=== PATIENT | male | born 1935 | race Two or more races ===

== ENCOUNTER 2019-08-10 12:26 | Inpatient (IN) | payer MEDICARE ==
[~2019-08-10] VITALS: Ht 180.3 cm; Wt 83.9 kg
--- NOTE | 2019-08-10 12:53 | NUR ---
ED Nurse Note: Pt walked into ED w/ generalized fatigue for 3 months and weight loss in past 3 months. Pt also states "kidney labs were off" at last visit at doctor and wants to be seen. Pt is alert adn orientedx4, ambulatory with walker. Set up on monitor.
[2019-08-10 13:35] VITALS: BP 108/56
--- NOTE | 2019-08-10 13:39 | NUR ---
ED Nurse Note: IV access established on R AC 20 ga, blood and urine specimen collected sent down
[2019-08-10 13:40] LABS: APPEARANCE,URINE CLEAR; BILIRUBIN, URINE NEGATIVE (NEGATIVE); COLOR,URINE PALE YELLOW; GLUCOSE, URINE (UA) NEGATIVE (NEGATIVE); KETONES,URINE NEGATIVE (NEGATIVE); LEUKOCYTE ESTERASE ,URINE 1+ (NEGATIVE); NITRITE,URINE NEGATIVE (NEGATIVE); PH,URINE 8 (4.5-8.0); PROTEIN,URINE 1+ (NEGATIVE); UROBILINOGEN,URINE NORMAL MG/DL (0.0-1.0)
[2019-08-10 14:11] LABS: ANION GAP 8 mmol/L (5-15); BLOOD UREA NITROGEN 45 mg/dL (7-18); CALCIUM 8.9 MG/DL (8.5-10.1); CARBON DIOXIDE 27 MMOL/L (21-32); CHLORIDE 100 MMOL/L (98-107); CREATININE 2.6 MG/DL (0.55-1.30); POTASSIUM 5.4 MMOL/L (3.5-5.1); SODIUM 135 MMOL/L (136-145)
[2019-08-10 14:12] LABS: HEMATOCRIT 39.2 % (42.0-52.0); HEMOGLOBIN 12.7 G/DL (14.2-18.0); LYMPHOCYTES % (AUTO) 27.2 % (20.0-45.0); MEAN CORPUSCULAR VOLUME 92 FL (80-99); MONOCYTES % (AUTO) 10.4 % (1.0-10.0); NEUTROPHILS % (AUTO) 55.4 % (45.0-75.0); PLATELET COUNT 252 K/UL (150-450); RED BLOOD COUNT 4.27 M/UL (4.70-6.10); RED CELL DISTRIBUTION WIDTH 13.4 % (11.6-14.8)
[2019-08-10 14:15] LABS: ALANINE AMINOTRANSFERASE 14 U/L (12-78); ALBUMIN 4.1 G/DL (3.4-5.0); ALKALINE PHOSPHATASE 44 U/L (46-116); ASPARTATE AMINO TRANSFERASE 17 U/L (15-37); BILIRUBIN,TOTAL 0.4 MG/DL (0.2-1.0)
--- NOTE | 2019-08-10 14:35 | Emergency Room Report ---
History of Present Illness General Chief Complaint: Generalized Weakness Source: Patient Present Illness HPI 84-year-old male presents evaluation. States that he had lab work done by his PMD and states that his kidney function was off. States he feels well. Was told by his PMD to come to the hospital. States he feels well. Denies any chest pain or shortness of breath. Denies any fevers or chills. No other aggravating relieving factors. Denies any other associated symptoms Allergies: Coded Allergies: No Known Allergies (Unverified , 08/10/19) COVID-19 Screening Contact w/high risk pt: No Recent Travel to affected area: No Experienced COVID-19 symptoms?: No COVID-19 Testing performed ACCOUNTING SUPPORT SPECIALIST: No Patient History Past Medical History: DM Past Surgical History: none Pertinent Family History: none Social History: Denies: smoking, alcohol use, drug use Immunizations: UTD Reviewed Nursing Documentation: PMH: Agreed; PSxH: Agreed Nursing Documentation-PMH Past Medical History: No History, Except For Hx Diabetes: Yes - borderline Review of Systems All Other Systems: negative except mentioned in HPI Physical Exam Vital Signs Date Time Temp Pulse Resp B/P (MAP) Pulse Ox O2 Delivery O2 Flow Rate FiO2 08/10/19 12:39 98.2 79 18 108/56 (73) 95 Room Air Sp02 EP Interpretation: reviewed, normal General Appearance: no apparent distress, alert, GCS 15, non-toxic Head: normocephalic, atraumatic Eyes: bilateral eye normal inspection, bilateral eye PERRL ENT: hearing grossly normal, normal pharynx, no angioedema, normal voice Neck: full range of motion, supple/symm/no masses Respiratory: chest non-tender, lungs clear, normal breath sounds, speaking full sentences Cardiovascular #1: regular rate, rhythm, no edema Cardiovascular #2: 2+ carotid (R), 2+ carotid (L), 2+ radial (R), 2+ radial (L) , 2+ dorsalis pedis (R), 2+ dorsalis pedis (L) Gastrointestinal: normal bowel sounds, non tender, soft, non-distended, no guarding, no rebound Rectal: deferred Genitourinary: normal inspection, no CVA tenderness Musculoskeletal: back normal, normal range of motion, gait/station normal, non- tender Neurologic: alert, motor strength/tone normal, oriented x3, sensory intact, responsive, speech normal Psychiatric: judgement/insight normal, memory normal, mood/affect normal, no suicidal/homicidal ideation Reflexes: 3+ bicep (R), 3+ bicep (L), 3+ tricep (R), 3+ tricep (L), 3+ knee (R) , 3+ knee (L) Skin: no rash Lymphatic: no adenopathy Medical Decision Making Diagnostic Impression: Primary Impression: Episode of generalized weakness Additional Impressions: Hyperkalemia Renal insufficiency ER Course Hospital Course 84 yo male presents with generalized weakness, abnormal labs Differential diagnoses include: OR/unstable angina, V. tach, bradycardia, hyperkalemia, fluid overload Clinical course Patient placed on stretcher. on environmental monitoring technician. After initial history and physical I ordered labs, EKG labs reviewed- potassium 5.4. BUN/Cr elevated. Hemoglobin/hematocrit normal. EKG - Normal sinus rhythm no acute ischemic changes interpreted by me Given Kayexalate. Discussed with his PMD Dr. Ford and he suggested admission Case discussed with Dr. Morales and he agreed to accept the patient to his service for further care and support I. I feel this is a highly complex case requiring extensive working including EKG/Rhythm strip, Xray/CT/US, Blood/urine lab work, repeat exams while in ED, and administration of strong opiates/narcotics for pain control, admission to hospital or close patient follow up. Diagnosis - episode of generalized weakness, hyperkalemia, renal insufficiency admitted to telementry in serious condition Labs Test 08/10/19 13:30 White Blood Count 7.0 K/UL (4.8-10.8) Red Blood Count 4.27 M/UL (4.70-6.10) Hemoglobin 12.7 G/DL (14.2-18.0) Hematocrit 39.2 % (42.0-52.0) Mean Corpuscular Volume 92 FL (80-99) Mean Corpuscular Hemoglobin 29.6 PG (27.0-31.0) Mean Corpuscular Hemoglobin Concent 32.3 G/DL (32.0-36.0) Red Cell Distribution Width 13.4 % (11.6-14.8) Platelet Count 252 K/UL (150-450) Mean Platelet Volume 6.8 FL (6.5-10.1) Neutrophils (%) (Auto) 55.4 % (45.0-75.0) Lymphocytes (%) (Auto) 27.2 % (20.0-45.0) Monocytes (%) (Auto) 10.4 % (1.0-10.0) Eosinophils (%) (Auto) 6.0 % (0.0-3.0) Basophils (%) (Auto) 1.0 % (0.0-2.0) Urine Color Pale yellow Urine Appearance Clear Urine pH 8 (4.5-8.0) Urine Specific [place] 1.010 (1.005-1.035) Urine Protein 1+ (NEGATIVE) Urine Glucose (UA) Negative (NEGATIVE) Urine Ketones Negative (NEGATIVE) Urine Blood Negative (NEGATIVE) Urine Nitrite Negative (NEGATIVE) Urine Bilirubin Negative (NEGATIVE) Urine Urobilinogen Normal MG/DL (0.0-1.0) Urine Leukocyte Esterase 1+ (NEGATIVE) Urine RBC 0 /HPF (0 - 0) Urine WBC 2-4 /HPF (0 - 0) Urine Squamous Epithelial Cells Occasional /LPF Urine Bacteria Occasional /HPF (NONE) Sodium Level 135 MMOL/L (136-145) Potassium Level 5.4 MMOL/L (3.5-5.1) Chloride Level 100 MMOL/L (98-107) Carbon Dioxide Level 27 MMOL/L (21-32) Anion Gap 8 mmol/L (5-15) Blood Urea Nitrogen 45 mg/dL (7-18) Creatinine 2.6 MG/DL (0.55-1.30) Estimat Glomerular Filtration Rate 23.7 mL/min (>60) Glucose Level 115 MG/DL (74-106) Calcium Level 8.9 MG/DL (8.5-10.1) Total Bilirubin 0.4 MG/DL (0.2-1.0) Aspartate Amino Transf (AST/SGOT) 17 U/L (15-37) Alanine Aminotransferase (ALT/SGPT) 14 U/L (12-78) Alkaline Phosphatase 44 U/L (46-116) Troponin I 0.000 ng/mL (0.000-0.056) Total Protein 8.1 G/DL (6.4-8.2) Albumin 4.1 G/DL (3.4-5.0) Globulin 4.0 g/dL Albumin/Globulin Ratio 1.0 (1.0-2.7) EKG Diagnostic Results Rate: normal Rhythm: NSR ST Segments: no acute changes ASA given to the pt in ED: No Rhythm Strip Diag. Results EP Interpretation: yes Rhythm: NSR, no PVC's, no ectopy Last Vital Signs Date Time Temp Pulse Resp B/P (MAP) Pulse Ox O2 Delivery O2 Flow Rate FiO2 08/10/19 13:35 98.2 18 108/56 95 Room Air 08/10/19 13:35 79 Status: improved Disposition: ADMITTED INPATIENT Condition: Serious Referrals: NON PHYSICIAN (PCP) Neville Damon MD Aug 10, 2019 14:35
[2019-08-10] MEDS ORDERED: Sodium Polystyrene Sulfonate 15gm Powder ORAL ONE (15:00)
[2019-08-10] MEDS ORDERED: PLAVIX75 MG ORAL (15:19)
--- NOTE | 2019-08-10 16:03 | NUR ---
ED Nurse Note: Report given to Juliann RN.
--- NOTE | 2019-08-10 16:45 | NUR ---
ED Nurse Note: Pt transferred to tele floor with all belongings. Pt on monitor. No acute distress.
--- NOTE | 2019-08-10 17:00 | NUR ---
NURSE NOTES: Patient admitted from ER, report received from Darling RHODES. A and O x 4. Able to stand without assist. IV line on RAC g20 intact and patent. VS taken: BP 140/63, 98,8F, 99 O2 saturation. SCD's requested from central supply. Oriented to room and call light. Belongings accounted for. Skin intact. Connected to tele box. HOB elevated. Bed locked in lowest position. Call light within reach. Will continue plan of care.
[2019-08-10] MEDS ORDERED: Miralax 17gm pkt ORAL PRN (17:30)
[2019-08-10] MEDS ORDERED: Albuterol/Ipratropium 3ml neb HHN PRN (17:30)
[2019-08-10] MEDS ORDERED: Zolpidem 5mg tab ORAL PRN (17:30)
--- NOTE | 2019-08-10 17:40 | Diagnostic Imaging Report ---
EXAM: US Retroperitoneal Complete, Renal CLINICAL HISTORY: Pain. TECHNIQUE: Real-time complete ultrasound of the retroperitoneum with image documentation. COMPARISON: No relevant prior studies available. FINDINGS: Right kidney: Renal cyst. No stones. No solid mass. No hydronephrosis. Left kidney: Renal cyst. No stones. No solid mass. No hydronephrosis. Bladder: Unremarkable as visualized. IMPRESSION: No hydronephrosis.
[2019-08-10] MEDS: Docusate 100mg cap ORAL SCH (17:49)
[2019-08-10] MEDS: D5NS 1,000 ML IV SCH (17:50)
--- NOTE | 2019-08-10 19:16 | Consultation ---
Consult Note Consult Note I am asked to evaluate the patient at the request of Dr. ibarra for renal failure and hyperkalemia. Patient was seen at 7 PM in room 202. Discussed with the nurse Juliann. Patient is 84-year-old male who presented to emergency room for abnormal lab lab work that was done in his doctor's office and subsequently after initial evaluation is being admitted for further management Patient interviewed and examined Data reviewed 84 years old male with PMH of borderline diabetes mellitus, recent weight loss , was referred to ED by his primary MD due to abnormal labs , which showed abnormal kidney function. Upon evaluation vital signs were stable. Patient denied chest pain or shortness of breath. Patient denied fever or chills. He reported weight loss of >20 Lb in the last 1-1.5 month Laboratory work-up revealed no leukocytosis ,hemoglobin 12.7, hematocrit 39.2, platelet count 252. Potassium 5.4. BUN 45, creatinine 2.6. Troponin negative. EKG revealed sinus rhythm , no acute ischemic changes. Albumin 4.1. Urinalysis revealed +1 protein. Patient admitted for renal failure ,hyperkalemia and recent weight loss ,rule out occult malignancy . Assessment/Plan Renal failure most likely acute possible underlying chronic kidney disease Hyperkalemia on presentation to the ER Generalized weakness, recent weight loss Anemia DM [place], Proteinuria Kayexalate for hyperkalemia Hydrate, will watch for symptoms of CHF Kidney ultrasound Flomax Keep the blood pressure in check Monitor renal parameters Avoid nephrotoxic's Anemia work-up Urine studies I spent an additional 36 minutes on review of medical records including prior hospital records,consult notes, progress notes, procedures ,imaging labs, hemodynamics, and other clinical documentation. Malcolm Ashton MD Aug 10, 2019 19:16
--- NOTE | 2019-08-10 19:33 | NUR ---
HAND-OFF: Report given to Lorelei RHODES.
--- NOTE | 2019-08-10 19:35 | NUR ---
NURSE NOTES: Received report from Juliann Jimenez RN. Pt in bed, stable, denies pain or distress at this time. Will conitune plan of care and close monitoring.
--- NOTE | 2019-08-10 19:54 | History & Physical ---
History and Physical History & Physicial Dictation Terry Morales MD Aug 10, 2019 19:54
[2019-08-10 20:00] VITALS: BP_SYST 117; BP_SYST 149; BP_DIAS 69; BP_DIAS 86
[2019-08-10] MEDS ORDERED: Tamsulosin 0.4mg cap ORAL SCH (21:00)
[2019-08-11] VITALS: BP_SYST 148; BP_SYST 151; BP_DIAS 71; BP_DIAS 99
[2019-08-11 04:00] VITALS: BP 121/60
--- NOTE | 2019-08-11 04:15 | History and Physical Report ---
DATE OF ADMISSION: 08/10/2019 CHIEF COMPLAINT: Abnormal blood test. HISTORY OF PRESENT ILLNESS: This is an 84-year-old gentleman with past medical history significant for borderline diabetic type 2, nasal surgery over 10 years ago. Denies any history of high blood pressure or diabetes. Denies any history of cancer or coronary disease who presented to the hospital as per request by Dr. Donte Ford, Cardiology. The patient had a recent blood checkup done due to the severe weakness as well as weight loss. It is noted the patient has lost 35 pounds over the past 2 months and he has become severely fatigued after walking for 2 blocks. He has become so tired and has to take a break. Shortly after initial evaluation, the patient had a blood test done by his primary physician noted abnormal laboratories and advised him to come to the hospital as soon as possible. Upon arrival to [facility], the patient had a repeat blood test done confirmed the patient has acute kidney injury on chronic with hyperkalemia, potassium of 5.4. Subsequently, the patient was admitted to the hospital for further evaluation and therapy. PAST MEDICAL HISTORY/PAST SURGICAL HISTORY: Diabetic type 2 borderline and nasal surgery over 10 years ago. MEDICATIONS AT HOME: None. SOCIAL HISTORY: Denies any smoking, alcohol, or drugs. He retired 40 years ago. FAMILY HISTORY: Mother with atherosclerotic heart disease. Father unknown. REVIEW OF SYSTEMS: Mostly as above. Complained about fatigue, weakness, weight loss. Denies any hemoptysis or hematochezia. Denies any suicidal or homicidal ideation. Denies any loss of consciousness. Denies any bright red blood per rectum. Denies any hematuria, head trauma, or recent COVID-19 exposure. PHYSICAL EXAMINATION: VITAL SIGNS: On admission is significant for temperature 98.2, pulse of 79, respirations 18, and blood pressure 108/56. GENERAL: The patient awake and responsive, no acute distress. HEAD AND NECK: Pupils are equal and reactive to light. Extraocular movements intact. Neck was supple. No JVD. LUNGS: Good air entry. No wheezes or rales. HEART: S1 and S2. Regular rate and rhythm. No murmur or gallops. ABDOMEN: Soft, nondistended, and nontender. Positive bowel sounds. EXTREMITIES: No cyanosis, clubbing, or edema. NEUROLOGIC: Cranial nerves II through XII grossly intact. Motor is 5/5 in all extremities. Gait is intact. RECTAL/GENITOURINARY: Refused and deferred. PSYCHIATRIC: Mood and affect is intact. LABORATORY DATA: On admission from the emergency department noted the patient has sodium 135, potassium 5.4, chloride 100, bicarb 27, BUN 45, creatinine is 2.6, GFR 23, glucose is 115, and calcium is 8.9. Alkaline phosphatase 44, AST of 17, ALT of 14. Total protein is 0.00. Albumin is 4.1. Total protein ____. WBC of 7.0, hemoglobin 12, hematocrit 39, and platelets is 252,000. The patient had a renal ultrasound unremarkable. No hydronephrosis. No solid mass. No stone was identified. ASSESSMENT: 1. Hyperkalemia. 2. Acute kidney injury on chronic renal insufficiency. 3. Borderline diabetes type 2. 4. Recent weight loss. PLAN: Admit the patient to monitored unit. We will follow up with Dr. Malcolm Ashton, nephrology consultation and Dr. Canales, pulmonary critical care. We will follow up with the laboratory. DVT prophylaxis, heparin subcutaneous. Code status, Full Code. Continue to get a CT scan of the chest and MRI of the abdomen without contrast in order to workup for weight loss and possible occult malignancy. Discussed with the patient extensively with regard to the plan of care. Terry Morales M.D. DR: CRESENCIO JOB#: [id number] CC: JOHN PAUL
[2019-08-11] MEDS: D5NS 1,000 ML IV SCH ×2 (05:03→18:00)
[2019-08-11 07:19] LABS: BASOPHILS % (AUTO) 1.2 % (0.0-2.0); LYMPHOCYTES % (AUTO) 27.1 % (20.0-45.0); MEAN CORPUSCULAR VOLUME 91 FL (80-99); MONOCYTES % (AUTO) 8.3 % (1.0-10.0); NEUTROPHILS % (AUTO) 58.5 % (45.0-75.0); PLATELET COUNT 224 K/UL (150-450); RED BLOOD COUNT 3.72 M/UL (4.70-6.10); RED CELL DISTRIBUTION WIDTH 13.1 % (11.6-14.8); WHITE BLOOD COUNT 8.5 K/UL (4.8-10.8)
--- NOTE | 2019-08-11 07:38 | NUR ---
HAND-OFF: Report given to Theresa Mcghee RN. Patient is stable.
--- NOTE | 2019-08-11 07:54 | NUR ---
HAND-OFF: Report given to Juliann Jimenez RN. Pt in stable condition; plan of care endorsed.
[2019-08-11 07:57] LABS: ALANINE AMINOTRANSFERASE < 6 U/L (12-78); ALBUMIN 3.3 G/DL (3.4-5.0); ALKALINE PHOSPHATASE 34 U/L (46-116); ANION GAP 9 mmol/L (5-15); ASPARTATE AMINO TRANSFERASE 18 U/L (15-37); BILIRUBIN,TOTAL 0.3 MG/DL (0.2-1.0); BLOOD UREA NITROGEN 31 mg/dL (7-18); CALCIUM 7.7 MG/DL (8.5-10.1); CARBON DIOXIDE 23 MMOL/L (21-32); CHLORIDE 106 MMOL/L (98-107); CHOLESTEROL 142 MG/DL (< 200); CREATININE 1.7 MG/DL (0.55-1.30); GAMMA GLUTAMYL TRANSPEPTIDASE 4 U/L (5-85); HDL CHOLESTEROL 38 MG/DL (40-60); PHOSPHORUS 4.8 MG/DL (2.5-4.9); POTASSIUM 4.5 MMOL/L (3.5-5.1); SODIUM 138 MMOL/L (136-145); TRIGLYCERIDES 56 MG/DL (30-150)
[2019-08-11 08:00] VITALS: BP 123/48
--- NOTE | 2019-08-11 08:15 | NUR ---
NURSE NOTES: Received patient in bed awake. No SOB or acute distress. IV line out, reinserted to left hand using g20. maintained on NPO for procedure. For urine sample collection as instructed, specimen cup given. HOB elevated. Bed locked in lowest position. Call light within reach. Will continue plan of care.
--- NOTE | 2019-08-11 08:29 | Consultation ---
History of Present Illness General Date patient seen: Aug 11, 2019 Time patient seen: 07:30 Chief Complaint: Generalized Weakness Referring physician: dr Morales Reason for Consultation: recent weight loss r/o occult malignancy Present Illness HPI 84 years old male with PMH of borderline diabetes mellitus, recent weight loss , was referred to ED by his primary MD due to abnormal labs , which showed abnormal kidney function. Upon evaluation vital signs were stable. Patient denied chest pain or shortness of breath. Patient denied fever or chills. He reported weight loss of >20 Lb in the last 1-1.5 month Laboratory work-up revealed no leukocytosis ,hemoglobin 12.7, hematocrit 39.2, platelet count 252. Potassium 5.4. BUN 45, creatinine 2.6. Glucose 115. Stable LFT. Troponin negative. EKG revealed sinus rhythm , no acute ischemic changes. Albumin 4.1. Urinalysis revealed +1 protein. Patient admitted for renal failure ,hyperkalemia and recent weight loss ,rule out occult malignancy Allergies: Coded Allergies: No Known Allergies (Unverified , 08/10/19) Medication History Scheduled Clopidogrel Bisulfate* (Plavix*), 75 MG ORAL DAILY, (Reported) Patient History Healthcare decision maker Resuscitation status Advanced Directive on File Review of Systems Constitutional: Reports: other - weight loss Eye: Reports: no symptoms ENT: Reports: no symptoms Respiratory: Reports: no symptoms Cardiovascular: Reports: no symptoms Gastrointestinal: Reports: other - weight loss Genitourinary: Reports: see HPI Musculoskeletal: Reports: no symptoms Skin: Reports: no symptoms Psychiatric: Reports: no symptoms Neurological: Reports: no symptoms Endocrine: Reports: no symptoms Physical Exam General Appearance: no apparent distress, alert - awake, responsive Lines, tubes and drains: peripheral HEENT: normocephalic, atraumatic, anicteric, mucous membranes moist Neck: non-tender, supple Respiratory/Chest: chest wall non-tender, lungs clear, normal breath sounds, no respiratory distress, no accessory muscle use Cardiovascular/Chest: normal rate, no JVD Abdomen: normal bowel sounds, non tender, soft Extremities: normal range of motion, non-tender Skin Exam: warm/dry Neurologic: no motor/sensory deficits, alert, oriented x 3, responsive Musculoskeletal: normal muscle bulk Last 24 Hour Vital Signs Date Time Temp Pulse Resp B/P (MAP) Pulse Ox O2 Delivery O2 Flow Rate FiO2 08/11/19 04:00 97.4 78 15 121/60 (80) 97 08/11/19 00:00 96.4 60 17 148/71 (96) 97 08/10/19 21:00 Room Air 08/10/19 20:00 96.7 77 20 117/69 (85) 97 08/10/19 18:09 Room Air 08/10/19 16:45 98.2 72 17 114/62 97 Room Air 08/10/19 13:35 98.2 18 108/56 95 Room Air 08/10/19 13:35 79 18 Room Air 08/10/19 12:39 98.2 79 18 108/56 (73) 95 Room Air Intake and Output 08/10/19 08/11/19 19:00 07:00 Intake Total 1000 ml Balance 1000 ml Intake IV Total 1000 ml # Voids 1 7 Laboratory Tests Test 08/10/19 13:30 08/11/19 06:10 White Blood Count 7.0 K/UL (4.8-10.8) 8.5 K/UL (4.8-10.8) Red Blood Count 4.27 M/UL (4.70-6.10) L 3.72 M/UL (4.70-6.10) L Hemoglobin 12.7 G/DL (14.2-18.0) L 11.0 G/DL (14.2-18.0) L Hematocrit 39.2 % (42.0-52.0) L 34.0 % (42.0-52.0) L Mean Corpuscular Volume 92 FL (80-99) 91 FL (80-99) Mean Corpuscular Hemoglobin 29.6 PG (27.0-31.0) 29.7 PG (27.0-31.0) Mean Corpuscular Hemoglobin Concent 32.3 G/DL (32.0-36.0) 32.5 G/DL (32.0-36.0) Red Cell Distribution Width 13.4 % (11.6-14.8) 13.1 % (11.6-14.8) Platelet Count 252 K/UL (150-450) 224 K/UL (150-450) Mean Platelet Volume 6.8 FL (6.5-10.1) 6.7 FL (6.5-10.1) Neutrophils (%) (Auto) 55.4 % (45.0-75.0) 58.5 % (45.0-75.0) Lymphocytes (%) (Auto) 27.2 % (20.0-45.0) 27.1 % (20.0-45.0) Monocytes (%) (Auto) 10.4 % (1.0-10.0) H 8.3 % (1.0-10.0) Eosinophils (%) (Auto) 6.0 % (0.0-3.0) H 5.0 % (0.0-3.0) H Basophils (%) (Auto) 1.0 % (0.0-2.0) 1.2 % (0.0-2.0) Urine Color Pale yellow Urine Appearance Clear Urine pH 8 (4.5-8.0) Urine Specific [place] 1.010 (1.005-1.035) Urine Protein 1+ (NEGATIVE) H Urine Glucose (UA) Negative (NEGATIVE) Urine Ketones Negative (NEGATIVE) Urine Blood Negative (NEGATIVE) Urine Nitrite Negative (NEGATIVE) Urine Bilirubin Negative (NEGATIVE) Urine Urobilinogen Normal MG/DL (0.0-1.0) Urine Leukocyte Esterase 1+ (NEGATIVE) H Urine RBC 0 /HPF (0 - 0) Urine WBC 2-4 /HPF (0 - 0) Urine Squamous Epithelial Cells Occasional /LPF Urine Bacteria Occasional /HPF (NONE) Sodium Level 135 MMOL/L (136-145) L 138 MMOL/L (136-145) Potassium Level 5.4 MMOL/L (3.5-5.1) H 4.5 MMOL/L (3.5-5.1) Chloride Level 100 MMOL/L (98-107) 106 MMOL/L (98-107) Carbon Dioxide Level 27 MMOL/L (21-32) 23 MMOL/L (21-32) Anion Gap 8 mmol/L (5-15) 9 mmol/L (5-15) Blood Urea Nitrogen 45 mg/dL (7-18) H 31 mg/dL (7-18) H Creatinine 2.6 MG/DL (0.55-1.30) H 1.7 MG/DL (0.55-1.30) H Estimat Glomerular Filtration Rate 23.7 mL/min (>60) 38.7 mL/min (>60) Glucose Level 115 MG/DL (74-106) H 89 MG/DL (74-106) Calcium Level 8.9 MG/DL (8.5-10.1) 7.7 MG/DL (8.5-10.1) L Total Bilirubin 0.4 MG/DL (0.2-1.0) 0.3 MG/DL (0.2-1.0) Aspartate Amino Transf (AST/SGOT) 17 U/L (15-37) 18 U/L (15-37) Alanine Aminotransferase (ALT/SGPT) 14 U/L (12-78) < 6 U/L (12-78) L Alkaline Phosphatase 44 U/L (46-116) L 34 U/L (46-116) L Troponin I 0.000 ng/mL (0.000-0.056) Total Protein 8.1 G/DL (6.4-8.2) 6.7 G/DL (6.4-8.2) Albumin 4.1 G/DL (3.4-5.0) 3.3 G/DL (3.4-5.0) L Globulin 4.0 g/dL 3.4 g/dL Albumin/Globulin Ratio 1.0 (1.0-2.7) 1.0 (1.0-2.7) Hemoglobin A1c Pending Uric Acid 6.2 MG/DL (2.6-7.2) Phosphorus Level 4.8 MG/DL (2.5-4.9) Magnesium Level 2.4 MG/DL (1.8-2.4) Gamma Glutamyl Transpeptidase 4 U/L (5-85) L C-Reactive Protein, Quantitative < 0.4 mg/dL (0.00-0.90) Pro-B-Type Natriuretic Peptide 516 pg/mL (0-125) H Triglycerides Level 56 MG/DL (30-150) Cholesterol Level 142 MG/DL (< 200) LDL Cholesterol 82 mg/dL (<100) HDL Cholesterol 38 MG/DL (40-60) L Cholesterol/HDL Ratio 3.7 (3.3-4.4) Prostate Specific Antigen 2.43 ng/mL (0.13-4.0) Thyroid Stimulating Hormone (TSH) 1.830 uiU/mL (0.358-3.740) Height (Feet): 5 Height (Inches): 11.00 Weight (Pounds): 185 Medications Current Medications Medications (Trade) Dose Ordered Sig/Iris Route PRN Reason Start Time Stop Time Status Last Admin Dose Admin Acetaminophen (Tylenol) 650 mg Q4H PRN ORAL fever 08/10/19 17:30 09/09/19 17:29 Albuterol/ Ipratropium (Albuterol/ Ipratropium) 3 ml Q4H PRN HHN Shortness of Breath 08/10/19 17:30 08/15/19 17:29 Dextrose (Dextrose 50%) 25 ml Q30MIN PRN IV Hypoglycemia 08/10/19 17:30 11/08/19 17:29 Dextrose (Dextrose 50%) 50 ml Q30MIN PRN IV Hypoglycemia 08/10/19 17:30 11/08/19 17:29 Dextrose/Sodium Chloride 1,000 ml @ 75 mls/hr [id number] IV 08/10/19 16:15 09/09/19 16:14 08/11/19 05:03 Docusate Sodium (Colace) 100 mg TWICE A DAY ORAL 08/10/19 18:00 09/09/19 17:59 08/10/19 17:49 Heparin Sodium (Porcine) (Heparin 5000 units/ml) 5,000 units EVERY 12 HOURS SUBQ 08/11/19 09:00 09/25/19 08:59 Ondansetron HCl (Zofran) 4 mg Q6H PRN IVP Nausea & Vomiting 08/10/19 17:30 09/09/19 17:29 Pantoprazole (Protonix) 40 mg DAILY ORAL 08/10/19 16:15 09/09/19 16:14 08/10/19 17:49 Polyethylene Glycol (Miralax) 17 gm HSPRN PRN ORAL Constipation 08/10/19 17:30 09/09/19 17:29 Sodium Chloride 1,000 ml @ 200 mls/hr Q5H IV 08/10/19 15:00 09/09/19 14:59 08/11/19 02:50 Tamsulosin HCl (Flomax) 0.4 mg BEDTIME ORAL 08/10/19 21:00 09/09/19 20:59 08/10/19 20:48 Zolpidem Tartrate (Ambien) 5 mg HSPRN PRN ORAL Insomnia 08/10/19 17:30 08/17/19 17:29 Assessment/Plan Assessment/Plan: ASSESSMENT RON probably on CKD DM, borderline Hyperkalemia Recent weight loss , r/o occult malignancy Proteinuria Anemia PLAN OF CARE tele IVF O2 PRN titrate to keep sat above 90%, pulm toilet prn DVT prophylaxis Venous duplex CT chest and MRA abdomen to r/o occult malignancy renal US ->no hydro, no masses, no stones monitor renal parameters, lytes , correct lytes prn hyperkalemia corrected, K down to normal avoid nephrotoxic f/up with nephro recommendation creat trending down monitor H&H with goal to keep hemoglobin above 7 anemia w/up, stool OB, CEA PSA ,TSH, lipid panel all stable started on Flomax BS management with SSI check HgA1c diabetic diet diabetic teaching supportive care case discussed and evaluated by supervising physician Nelda Duncan NP Aug 11, 2019 08:29
[2019-08-11] MEDS: Docusate 100mg cap ORAL SCH ×2 (08:37→16:30)
[2019-08-11] MEDS ORDERED: Heparin 5000 units/ml inj SUBQ SCH (09:00)
--- NOTE | 2019-08-11 09:23 | Diagnostic Imaging Report ---
EXAM: US Duplex Bilateral Lower Extremities Veins CLINICAL HISTORY: DVT TECHNIQUE: Real-time duplex ultrasound scan of the bilateral lower extremity veins integrating B-mode two-dimensional vascular structure, Doppler spectral analysis, color flow Doppler imaging and compression. COMPARISON: No relevant prior studies available. FINDINGS: Right deep veins: Unremarkable. No DVT in the right common femoral, femoral, proximal deep femoral or popliteal veins. The veins demonstrate normal color flow, are normally compressible, with normal phasic flow and/or augmentation response. Right superficial veins: Unremarkable. No thrombus in the visualized right great saphenous vein. Left deep veins: Unremarkable. No DVT in the left common femoral, femoral, proximal deep femoral or popliteal veins. The veins demonstrate normal color flow, are normally compressible, with normal phasic flow and/or augmentation response. Left superficial veins: Unremarkable. No thrombus in the visualized left great saphenous vein. Soft tissues: No acute findings. No popliteal cyst. IMPRESSION: Normal bilateral lower extremity duplex venous ultrasound.
--- NOTE | 2019-08-11 10:11 | Diagnostic Imaging Report ---
EXAM: CT Chest Without Intravenous Contrast CLINICAL HISTORY: SOB TECHNIQUE: Axial computed tomography images of the chest without intravenous contrast. CTDI is 7.1 mGy and DLP is 303.1 mGy-cm. One or more of the following dose reduction techniques were used: automated exposure control, adjustment of the mA and/or kV according to patient size, use of iterative reconstruction technique. COMPARISON: None FINDINGS: Lungs: Small calcified granulomas in the right middle lobe. No focal consolidation. Pleural space: Unremarkable. No pneumothorax. No significant effusion. Heart: Unremarkable. No cardiomegaly. No significant pericardial effusion. Mediastinum: Small hiatal hernia. Bones/joints: Degenerative changes of the spine. No acute fracture. No dislocation. Soft tissues: Bilateral gynecomastia. Vasculature: Atherosclerotic changes of the aorta. No aortic aneurysm. Lymph nodes: Small calcified mediastinal lymph nodes. IMPRESSION: No acute findings in the chest.
--- NOTE | 2019-08-11 10:55 | NUR ---
NURSE NOTES: Decreased present IVF to 50ml/hr until further orders by Dr Ashton.
--- NOTE | 2019-08-11 11:58 | Internal Med Progress Note ---
Subjective Date of Service: Aug 11, 2019 Physician Name Eric Head Attending Physician Terry oMrales MD Current Medications Medications (Trade) Dose Ordered Sig/Iris Route PRN Reason Start Time Stop Time Status Last Admin Dose Admin Acetaminophen (Tylenol) 650 mg Q4H PRN ORAL fever 08/10/19 17:30 09/09/19 17:29 Albuterol/ Ipratropium (Albuterol/ Ipratropium) 3 ml Q4H PRN HHN Shortness of Breath 08/10/19 17:30 08/15/19 17:29 Dextrose (Dextrose 50%) 25 ml Q30MIN PRN IV Hypoglycemia 08/10/19 17:30 11/08/19 17:29 Dextrose (Dextrose 50%) 50 ml Q30MIN PRN IV Hypoglycemia 08/10/19 17:30 11/08/19 17:29 Dextrose/Sodium Chloride 1,000 ml @ 75 mls/hr [id number] IV 08/10/19 16:15 09/09/19 16:14 08/11/19 05:03 Docusate Sodium (Colace) 100 mg TWICE A DAY ORAL 08/10/19 18:00 09/09/19 17:59 08/11/19 08:37 Heparin Sodium (Porcine) (Heparin 5000 units/ml) 5,000 units EVERY 12 HOURS SUBQ 08/11/19 09:00 09/25/19 08:59 08/11/19 08:38 Ondansetron HCl (Zofran) 4 mg Q6H PRN IVP Nausea & Vomiting 08/10/19 17:30 09/09/19 17:29 Pantoprazole (Protonix) 40 mg DAILY ORAL 08/10/19 16:15 09/09/19 16:14 08/11/19 08:37 Polyethylene Glycol (Miralax) 17 gm HSPRN PRN ORAL Constipation 08/10/19 17:30 09/09/19 17:29 Sodium Chloride 1,000 ml @ 200 mls/hr Q5H IV 08/10/19 15:00 09/09/19 14:59 08/11/19 02:50 Tamsulosin HCl (Flomax) 0.4 mg BEDTIME ORAL 08/10/19 21:00 09/09/19 20:59 08/10/19 20:48 Zolpidem Tartrate (Ambien) 5 mg HSPRN PRN ORAL Insomnia 08/10/19 17:30 08/17/19 17:29 Allergies: Coded Allergies: No Known Allergies (Unverified , 08/10/19) ROS Limited/Unobtainable: No Constitutional: Reports: weakness HEENT: Reports: no symptoms Cardiovascular: Reports: no symptoms Respiratory: Reports: no symptoms Gastrointestinal/Abdominal: Reports: no symptoms Genitourinary: Reports: no symptoms Neurologic/Psychiatric: Reports: no symptoms Subjective 84 YO M admitted with weight loss and fatigue. Now acute renal failure. Cover for Int iwona-Dr Morales Objective Last Vital Signs Date Time Temp Pulse Resp B/P (MAP) Pulse Ox O2 Delivery O2 Flow Rate FiO2 08/11/19 09:00 Room Air 08/11/19 08:00 68 08/11/19 08:00 97.3 20 123/48 (73) 98 Laboratory Tests Test 08/10/19 13:30 08/11/19 06:10 08/11/19 08:40 White Blood Count 7.0 K/UL (4.8-10.8) 8.5 K/UL (4.8-10.8) Red Blood Count 4.27 M/UL (4.70-6.10) L 3.72 M/UL (4.70-6.10) L Hemoglobin 12.7 G/DL (14.2-18.0) L 11.0 G/DL (14.2-18.0) L Hematocrit 39.2 % (42.0-52.0) L 34.0 % (42.0-52.0) L Mean Corpuscular Volume 92 FL (80-99) 91 FL (80-99) Mean Corpuscular Hemoglobin 29.6 PG (27.0-31.0) 29.7 PG (27.0-31.0) Mean Corpuscular Hemoglobin Concent 32.3 G/DL (32.0-36.0) 32.5 G/DL (32.0-36.0) Red Cell Distribution Width 13.4 % (11.6-14.8) 13.1 % (11.6-14.8) Platelet Count 252 K/UL (150-450) 224 K/UL (150-450) Mean Platelet Volume 6.8 FL (6.5-10.1) 6.7 FL (6.5-10.1) Neutrophils (%) (Auto) 55.4 % (45.0-75.0) 58.5 % (45.0-75.0) Lymphocytes (%) (Auto) 27.2 % (20.0-45.0) 27.1 % (20.0-45.0) Monocytes (%) (Auto) 10.4 % (1.0-10.0) H 8.3 % (1.0-10.0) Eosinophils (%) (Auto) 6.0 % (0.0-3.0) H 5.0 % (0.0-3.0) H Basophils (%) (Auto) 1.0 % (0.0-2.0) 1.2 % (0.0-2.0) Urine Color Pale yellow Urine Appearance Clear Urine pH 8 (4.5-8.0) Urine Specific [place] 1.010 (1.005-1.035) Urine Protein 1+ (NEGATIVE) H Urine Glucose (UA) Negative (NEGATIVE) Urine Ketones Negative (NEGATIVE) Urine Blood Negative (NEGATIVE) Urine Nitrite Negative (NEGATIVE) Urine Bilirubin Negative (NEGATIVE) Urine Urobilinogen Normal MG/DL (0.0-1.0) Urine Leukocyte Esterase 1+ (NEGATIVE) H Urine RBC 0 /HPF (0 - 0) Urine WBC 2-4 /HPF (0 - 0) Urine Squamous Epithelial Cells Occasional /LPF Urine Bacteria Occasional /HPF (NONE) Sodium Level 135 MMOL/L (136-145) L 138 MMOL/L (136-145) Potassium Level 5.4 MMOL/L (3.5-5.1) H 4.5 MMOL/L (3.5-5.1) Chloride Level 100 MMOL/L (98-107) 106 MMOL/L (98-107) Carbon Dioxide Level 27 MMOL/L (21-32) 23 MMOL/L (21-32) Anion Gap 8 mmol/L (5-15) 9 mmol/L (5-15) Blood Urea Nitrogen 45 mg/dL (7-18) H 31 mg/dL (7-18) H Creatinine 2.6 MG/DL (0.55-1.30) H 1.7 MG/DL (0.55-1.30) H Estimat Glomerular Filtration Rate 23.7 mL/min (>60) 38.7 mL/min (>60) Glucose Level 115 MG/DL (74-106) H 89 MG/DL (74-106) Calcium Level 8.9 MG/DL (8.5-10.1) 7.7 MG/DL (8.5-10.1) L Total Bilirubin 0.4 MG/DL (0.2-1.0) 0.3 MG/DL (0.2-1.0) Aspartate Amino Transf (AST/SGOT) 17 U/L (15-37) 18 U/L (15-37) Alanine Aminotransferase (ALT/SGPT) 14 U/L (12-78) < 6 U/L (12-78) L Alkaline Phosphatase 44 U/L (46-116) L 34 U/L (46-116) L Troponin I 0.000 ng/mL (0.000-0.056) Total Protein 8.1 G/DL (6.4-8.2) 6.7 G/DL (6.4-8.2) Albumin 4.1 G/DL (3.4-5.0) 3.3 G/DL (3.4-5.0) L Globulin 4.0 g/dL 3.4 g/dL Albumin/Globulin Ratio 1.0 (1.0-2.7) 1.0 (1.0-2.7) Hemoglobin A1c 6.1 % (4.3-6.0) H Uric Acid 6.2 MG/DL (2.6-7.2) Phosphorus Level 4.8 MG/DL (2.5-4.9) Magnesium Level 2.4 MG/DL (1.8-2.4) Gamma Glutamyl Transpeptidase 4 U/L (5-85) L C-Reactive Protein, Quantitative < 0.4 mg/dL (0.00-0.90) Pro-B-Type Natriuretic Peptide 516 pg/mL (0-125) H Triglycerides Level 56 MG/DL (30-150) Cholesterol Level 142 MG/DL (< 200) LDL Cholesterol 82 mg/dL (<100) HDL Cholesterol 38 MG/DL (40-60) L Cholesterol/HDL Ratio 3.7 (3.3-4.4) Prostate Specific Antigen 2.43 ng/mL (0.13-4.0) Thyroid Stimulating Hormone (TSH) 1.830 uiU/mL (0.358-3.740) Urine Eosinophils None seen (NONE SEEN) Urine Random Sodium 108 mmol/L (20-110) Intake and Output 08/10/19 08/11/19 19:00 07:00 Intake Total 1000 ml Balance 1000 ml Intake IV Total 1000 ml # Voids 1 7 Objective PHYSICAL EXAMINATION: GENERAL: The patient awake and responsive, no acute distress. HEAD AND NECK: Pupils are equal and reactive to light. Extraocular movements intact. Neck was supple. No JVD. LUNGS: Good air entry. No wheezes or rales. HEART: S1 and S2. Regular rate and rhythm. No murmur or gallops. ABDOMEN: Soft, nondistended, and nontender. Positive bowel sounds. EXTREMITIES: No cyanosis, clubbing, or edema. NEUROLOGIC: Cranial nerves II through XII grossly intact. Motor is 5/5 in all extremities. Gait is intact. RECTAL/GENITOURINARY: Refused and deferred. PSYCHIATRIC: Mood and affect is intact. Assessment/Plan Assessment/Plan ASSESSMENT: 1. Hyperkalemia. 2. Acute kidney injury on chronic renal insufficiency. 3. Borderline diabetes type 2. 4. Recent weight loss. PLAN: 1. Admit the patient to monitored unit. 2. Dr. Malcolm Ashton= nephrology consultation 3. Dr. Canales=pulmonary critical care. 4. DVT prophylaxis,=heparin subcutaneous. 5. Code status, Full Code. 6. CT scan of the chest = no acute disease 7. MRI of the abdomen without contrast in order to workup for weight loss and possible occult malignancy-pending 8. GI=Dr. Velásquez. Eric Head MD Aug 11, 2019 11:58
[2019-08-11 12:00] VITALS: BP 120/59
--- NOTE | 2019-08-11 12:10 | Nephrology Progress Note ---
Assessment/Plan Problem List: (1) RON (acute kidney injury) Assessment: Improving (2) Hyperkalemia Assessment: corrected (3) Renal failure (ARF), acute on chronic (4) Proteinuria (5) Anemia (6) DMII (diabetes mellitus, type 2) Assessment Renal failure most likely acute possible underlying chronic kidney disease Hyperkalemia on presentation to the ER Generalized weakness, recent weight loss Anemia DM [place], Proteinuria Plan Kayexalate for hyperkalemia as needed Hydrate, will watch for symptoms of CHF Kidney ultrasound results noted Flomax started Keep the blood pressure in check Monitor renal parameters Avoid nephrotoxic's Anemia work-up Urine studies Subjective ROS Limited/Unobtainable: No Constitutional: Reports: malaise Objective Objective Last 24 Hour Vital Signs Date Time Temp Pulse Resp B/P (MAP) Pulse Ox O2 Delivery O2 Flow Rate FiO2 08/11/19 09:00 Room Air 08/11/19 08:00 68 08/11/19 08:00 97.3 54 20 123/48 (73) 98 08/11/19 04:00 97.4 78 15 121/60 (80) 97 08/11/19 00:00 96.4 60 17 148/71 (96) 97 08/10/19 21:00 Room Air 08/10/19 20:00 96.7 77 20 117/69 (85) 97 08/10/19 18:09 Room Air 08/10/19 16:45 98.2 72 17 114/62 97 Room Air 08/10/19 13:35 98.2 18 108/56 95 Room Air 08/10/19 13:35 79 18 Room Air 08/10/19 12:39 98.2 79 18 108/56 (73) 95 Room Air Intake and Output 08/10/19 08/11/19 19:00 07:00 Intake Total 1000 ml Balance 1000 ml Intake IV Total 1000 ml # Voids 1 7 Laboratory Tests Test 08/10/19 13:30 08/11/19 06:10 08/11/19 08:40 White Blood Count 7.0 K/UL (4.8-10.8) 8.5 K/UL (4.8-10.8) Red Blood Count 4.27 M/UL (4.70-6.10) L 3.72 M/UL (4.70-6.10) L Hemoglobin 12.7 G/DL (14.2-18.0) L 11.0 G/DL (14.2-18.0) L Hematocrit 39.2 % (42.0-52.0) L 34.0 % (42.0-52.0) L Mean Corpuscular Volume 92 FL (80-99) 91 FL (80-99) Mean Corpuscular Hemoglobin 29.6 PG (27.0-31.0) 29.7 PG (27.0-31.0) Mean Corpuscular Hemoglobin Concent 32.3 G/DL (32.0-36.0) 32.5 G/DL (32.0-36.0) Red Cell Distribution Width 13.4 % (11.6-14.8) 13.1 % (11.6-14.8) Platelet Count 252 K/UL (150-450) 224 K/UL (150-450) Mean Platelet Volume 6.8 FL (6.5-10.1) 6.7 FL (6.5-10.1) Neutrophils (%) (Auto) 55.4 % (45.0-75.0) 58.5 % (45.0-75.0) Lymphocytes (%) (Auto) 27.2 % (20.0-45.0) 27.1 % (20.0-45.0) Monocytes (%) (Auto) 10.4 % (1.0-10.0) H 8.3 % (1.0-10.0) Eosinophils (%) (Auto) 6.0 % (0.0-3.0) H 5.0 % (0.0-3.0) H Basophils (%) (Auto) 1.0 % (0.0-2.0) 1.2 % (0.0-2.0) Urine Color Pale yellow Urine Appearance Clear Urine pH 8 (4.5-8.0) Urine Specific [place] 1.010 (1.005-1.035) Urine Protein 1+ (NEGATIVE) H Urine Glucose (UA) Negative (NEGATIVE) Urine Ketones Negative (NEGATIVE) Urine Blood Negative (NEGATIVE) Urine Nitrite Negative (NEGATIVE) Urine Bilirubin Negative (NEGATIVE) Urine Urobilinogen Normal MG/DL (0.0-1.0) Urine Leukocyte Esterase 1+ (NEGATIVE) H Urine RBC 0 /HPF (0 - 0) Urine WBC 2-4 /HPF (0 - 0) Urine Squamous Epithelial Cells Occasional /LPF Urine Bacteria Occasional /HPF (NONE) Sodium Level 135 MMOL/L (136-145) L 138 MMOL/L (136-145) Potassium Level 5.4 MMOL/L (3.5-5.1) H 4.5 MMOL/L (3.5-5.1) Chloride Level 100 MMOL/L (98-107) 106 MMOL/L (98-107) Carbon Dioxide Level 27 MMOL/L (21-32) 23 MMOL/L (21-32) Anion Gap 8 mmol/L (5-15) 9 mmol/L (5-15) Blood Urea Nitrogen 45 mg/dL (7-18) H 31 mg/dL (7-18) H Creatinine 2.6 MG/DL (0.55-1.30) H 1.7 MG/DL (0.55-1.30) H Estimat Glomerular Filtration Rate 23.7 mL/min (>60) 38.7 mL/min (>60) Glucose Level 115 MG/DL (74-106) H 89 MG/DL (74-106) Calcium Level 8.9 MG/DL (8.5-10.1) 7.7 MG/DL (8.5-10.1) L Total Bilirubin 0.4 MG/DL (0.2-1.0) 0.3 MG/DL (0.2-1.0) Aspartate Amino Transf (AST/SGOT) 17 U/L (15-37) 18 U/L (15-37) Alanine Aminotransferase (ALT/SGPT) 14 U/L (12-78) < 6 U/L (12-78) L Alkaline Phosphatase 44 U/L (46-116) L 34 U/L (46-116) L Troponin I 0.000 ng/mL (0.000-0.056) Total Protein 8.1 G/DL (6.4-8.2) 6.7 G/DL (6.4-8.2) Albumin 4.1 G/DL (3.4-5.0) 3.3 G/DL (3.4-5.0) L Globulin 4.0 g/dL 3.4 g/dL Albumin/Globulin Ratio 1.0 (1.0-2.7) 1.0 (1.0-2.7) Hemoglobin A1c 6.1 % (4.3-6.0) H Uric Acid 6.2 MG/DL (2.6-7.2) Phosphorus Level 4.8 MG/DL (2.5-4.9) Magnesium Level 2.4 MG/DL (1.8-2.4) Gamma Glutamyl Transpeptidase 4 U/L (5-85) L C-Reactive Protein, Quantitative < 0.4 mg/dL (0.00-0.90) Pro-B-Type Natriuretic Peptide 516 pg/mL (0-125) H Triglycerides Level 56 MG/DL (30-150) Cholesterol Level 142 MG/DL (< 200) LDL Cholesterol 82 mg/dL (<100) HDL Cholesterol 38 MG/DL (40-60) L Cholesterol/HDL Ratio 3.7 (3.3-4.4) Prostate Specific Antigen 2.43 ng/mL (0.13-4.0) Thyroid Stimulating Hormone (TSH) 1.830 uiU/mL (0.358-3.740) Urine Eosinophils None seen (NONE SEEN) Urine Random Sodium 108 mmol/L (20-110) Current Medications Medications (Trade) Dose Ordered Sig/Iris Route PRN Reason Start Time Stop Time Status Last Admin Dose Admin Acetaminophen (Tylenol) 650 mg Q4H PRN ORAL fever 08/10/19 17:30 09/09/19 17:29 Albuterol/ Ipratropium (Albuterol/ Ipratropium) 3 ml Q4H PRN HHN Shortness of Breath 08/10/19 17:30 08/15/19 17:29 Dextrose (Dextrose 50%) 25 ml Q30MIN PRN IV Hypoglycemia 08/10/19 17:30 11/08/19 17:29 Dextrose (Dextrose 50%) 50 ml Q30MIN PRN IV Hypoglycemia 08/10/19 17:30 11/08/19 17:29 Dextrose/Sodium Chloride 1,000 ml @ 75 mls/hr [id number] IV 08/10/19 16:15 09/09/19 16:14 08/11/19 05:03 Docusate Sodium (Colace) 100 mg TIAC ORAL 08/11/19 16:30 09/09/19 17:59 Heparin Sodium (Porcine) (Heparin 5000 units/ml) 5,000 units EVERY 12 HOURS SUBQ 08/11/19 09:00 09/25/19 08:59 08/11/19 08:38 Ondansetron HCl (Zofran) 4 mg Q6H PRN IVP Nausea & Vomiting 08/10/19 17:30 09/09/19 17:29 Pantoprazole (Protonix) 40 mg BID ORAL 08/11/19 18:00 09/09/19 16:14 Polyethylene Glycol (Miralax) 17 gm HSPRN PRN ORAL Constipation 08/10/19 17:30 09/09/19 17:29 Tamsulosin HCl (Flomax) 0.4 mg BEDTIME ORAL 08/10/19 21:00 09/09/19 20:59 08/10/19 20:48 Zolpidem Tartrate (Ambien) 5 mg HSPRN PRN ORAL Insomnia 08/10/19 17:30 08/17/19 17:29 Laboratory Tests 08/10/19 13:30: White Blood Count 7.0, Red Blood Count 4.27L, Hemoglobin 12.7L, Hematocrit 39.2L , Mean Corpuscular Volume 92, Mean Corpuscular Hemoglobin 29.6, Mean Corpuscular Hemoglobin Concent 32.3, Red Cell Distribution Width 13.4, Platelet Count 252, Mean Platelet Volume 6.8, Neutrophils (%) (Auto) 55.4, Lymphocytes (% ) (Auto) 27.2, Monocytes (%) (Auto) 10.4H, Eosinophils (%) (Auto) 6.0H, Basophils (%) (Auto) 1.0, Urine Color Pale yellow, Urine Appearance Clear, Urine pH 8, Urine Specific [place] 1.010, Urine Protein 1+H, Urine Glucose (UA) Negative, Urine Ketones Negative, Urine Blood Negative, Urine Nitrite Negative, Urine Bilirubin Negative, Urine Urobilinogen Normal, Urine Leukocyte Esterase 1+ H, Urine RBC 0, Urine WBC 2-4, Urine Squamous Epithelial Cells Occasional, Urine Bacteria Occasional, Sodium Level 135L, Potassium Level 5.4H, Chloride Level 100, Carbon Dioxide Level 27, Anion Gap 8, Blood Urea Nitrogen 45H, Creatinine 2.6H, Estimat Glomerular Filtration Rate 23.7, Glucose Level 115H, Calcium Level 8.9, Total Bilirubin 0.4, Aspartate Amino Transf (AST/SGOT) 17, Alanine Aminotransferase (ALT/SGPT) 14, Alkaline Phosphatase 44L, Troponin I 0.000, Total Protein 8.1, Albumin 4.1, Globulin 4.0, Albumin/Globulin Ratio 1.0 08/11/19 06:10: White Blood Count 8.5, Red Blood Count 3.72L, Hemoglobin 11.0L, Hematocrit 34.0L , Mean Corpuscular Volume 91, Mean Corpuscular Hemoglobin 29.7, Mean Corpuscular Hemoglobin Concent 32.5, Red Cell Distribution Width 13.1, Platelet Count 224, Mean Platelet Volume 6.7, Neutrophils (%) (Auto) 58.5, Lymphocytes (% ) (Auto) 27.1, Monocytes (%) (Auto) 8.3, Eosinophils (%) (Auto) 5.0H, Basophils (%) (Auto) 1.2, Sodium Level 138, Potassium Level 4.5, Chloride Level 106, Carbon Dioxide Level 23, Anion Gap 9, Blood Urea Nitrogen 31H, Creatinine 1.7H, Estimat Glomerular Filtration Rate 38.7, Glucose Level 89, Calcium Level 7.7L, Total Bilirubin 0.3, Aspartate Amino Transf (AST/SGOT) 18, Alanine Aminotransferase (ALT/SGPT) < 6L, Alkaline Phosphatase 34L, Total Protein 6.7, Albumin 3.3L, Globulin 3.4, Albumin/Globulin Ratio 1.0, Hemoglobin A1c 6.1H, Uric Acid 6.2, Phosphorus Level 4.8, Magnesium Level 2.4, Gamma Glutamyl Transpeptidase 4L, C-Reactive Protein, Quantitative < 0.4, Pro-B-Type Natriuretic Peptide 516H, Triglycerides Level 56, Cholesterol Level 142, LDL Cholesterol 82, HDL Cholesterol 38L, Cholesterol/HDL Ratio 3.7, Prostate Specific Antigen 2.43, Thyroid Stimulating Hormone (TSH) 1.830 08/11/19 08:40: Urine Eosinophils None seen, Urine Random Sodium 108 Height (Feet): 5 Height (Inches): 11.00 Weight (Pounds): 185 General Appearance: no apparent distress Cardiovascular: other - Rate variable Respiratory/Chest: decreased breath sounds Abdomen: soft Malcolm Ashton MD Aug 11, 2019 12:10
--- NOTE | 2019-08-11 13:31 | NUR ---
NURSE NOTES: Patient for transfer to [facility], RN asking Dr Morales if observation is to be changed to inpatient status, awaiting response.
--- NOTE | 2019-08-11 15:05 | General Progress Note ---
Assessment/Plan Assessment/Plan: Assessment - Weight loss, ? etiology - Renal failure - Anemia Recommendations - IVF / correction of Azotemia - Monitor labs - [place] panel - Check stool OB - Agree with CT scan - EGD/Colon once stablized Thank you Celio Pendleton MD Subjective Allergies: Coded Allergies: No Known Allergies (Unverified , 08/10/19) Objective Last 24 Hour Vital Signs Date Time Temp Pulse Resp B/P (MAP) Pulse Ox O2 Delivery O2 Flow Rate FiO2 08/11/19 12:00 76 08/11/19 12:00 97.8 59 20 120/59 (79) 97 08/11/19 09:00 Room Air 08/11/19 08:00 68 08/11/19 08:00 97.3 54 20 123/48 (73) 98 08/11/19 04:00 97.4 78 15 121/60 (80) 97 08/11/19 00:00 96.4 60 17 148/71 (96) 97 08/10/19 21:00 Room Air 08/10/19 20:00 96.7 77 20 117/69 (85) 97 08/10/19 18:09 Room Air 08/10/19 16:45 98.2 72 17 114/62 97 Room Air Intake and Output 08/10/19 08/11/19 19:00 07:00 Intake Total 1000 ml Balance 1000 ml Intake IV Total 1000 ml # Voids 1 7 Laboratory Tests 08/11/19 06:10: White Blood Count 8.5, Red Blood Count 3.72L, Hemoglobin 11.0L, Hematocrit 34.0L , Mean Corpuscular Volume 91, Mean Corpuscular Hemoglobin 29.7, Mean Corpuscular Hemoglobin Concent 32.5, Red Cell Distribution Width 13.1, Platelet Count 224, Mean Platelet Volume 6.7, Neutrophils (%) (Auto) 58.5, Lymphocytes (% ) (Auto) 27.1, Monocytes (%) (Auto) 8.3, Eosinophils (%) (Auto) 5.0H, Basophils (%) (Auto) 1.2, Sodium Level 138, Potassium Level 4.5, Chloride Level 106, Carbon Dioxide Level 23, Anion Gap 9, Blood Urea Nitrogen 31H, Creatinine 1.7H, Estimat Glomerular Filtration Rate 38.7, Glucose Level 89, Hemoglobin A1c 6.1H, Uric Acid 6.2, Calcium Level 7.7L, Phosphorus Level 4.8, Magnesium Level 2.4, Total Bilirubin 0.3, Gamma Glutamyl Transpeptidase 4L, Aspartate Amino Transf ( AST/SGOT) 18, Alanine Aminotransferase (ALT/SGPT) < 6L, Alkaline Phosphatase 34L , C-Reactive Protein, Quantitative < 0.4, Pro-B-Type Natriuretic Peptide 516H, Total Protein 6.7, Albumin 3.3L, Globulin 3.4, Albumin/Globulin Ratio 1.0, Triglycerides Level 56, Cholesterol Level 142, LDL Cholesterol 82, HDL Cholesterol 38L, Cholesterol/HDL Ratio 3.7, Prostate Specific Antigen 2.43, Thyroid Stimulating Hormone (TSH) 1.830 08/11/19 08:40: Urine Eosinophils None seen, Urine Random Sodium 108 Height (Feet): 5 Height (Inches): 11.00 Weight (Pounds): 185 Celio Pendleton MD Aug 11, 2019 15:05
[2019-08-11] MEDS ORDERED: Miralax 17gm pkt ORAL PRN (15:44)
[2019-08-11] MEDS ORDERED: Albuterol/Ipratropium 3ml neb HHN PRN (15:44)
[2019-08-11] MEDS ORDERED: Zolpidem 5mg tab ORAL PRN (15:44)
[2019-08-11 16:06] VITALS: BP 121/58
--- NOTE | 2019-08-11 16:06 | NUR ---
HAND-OFF: Report given to Dawna RHODES. Patient transferred to [facility] rm [id number]. Belongings accounted for.
--- NOTE | 2019-08-11 16:07 | NUR ---
NURSE NOTES: Received report from MEAGAN Humphreys. Patient A&Ox4. On room air, no signs of distress or labored breathing. IV intact, patent, and saline locked. Will run IV fluids per MD order. Belongings checked and verified. Patient has his own cane at bedside. Bed in lowest position with call light in reach. Will continue with plan of care.
[2019-08-11] MEDS ORDERED: Docusate 100mg cap ORAL SCH (16:30)
--- NOTE | 2019-08-11 19:30 | NUR ---
NURSE NOTES: received report from jonathan hawk. patient is on bed. alert and oriented x4. ambulatory. denies any pain or discomfort. with iv line on the left hand running d5ns 1t 75 ml/hr. reiterated patient that we need to collect stool. patient verbalized understanding. bed locked and in lowest position. call light and light button within easy reach. will continue plan of care.
[2019-08-11 20:00] VITALS: BP 122/61
[2019-08-11] MEDS: Tamsulosin 0.4mg cap ORAL SCH (20:50)
[2019-08-11] MEDS: Heparin 5000 units/ml inj SUBQ SCH (20:51)
--- NOTE | 2019-08-11 21:30 | Consultation ---
DATE OF CONSULTATION: 08/11/2019 GASTROENTEROLOGY CONSULTATION CONSULTING PHYSICIAN: Celio Pendleton MD CHIEF COMPLAINT: I was asked to see this patient by Dr. Terry Morales for evaluation of anemia and weight loss. HISTORY OF PRESENT ILLNESS: The patient is an 84-year-old pleasant man, who complains of significant weight loss in the past month or 2. The patient states that he has lost perhaps 35 pounds, although he states he went from 205 to 185 pounds, which is about 20 pounds. He denies any abdominal pain, nausea, vomiting, diarrhea, constipation. He states his appetite is good, but he has become very fatigued and with low energy and moderate exertion can make him tired, he has become very energy. He denies any shortness of breath or cough. He has never had endoscopy or colonoscopy for it. He did have an evaluation as an outpatient because of his symptoms, which showed an elevated creatinine; therefore, he was admitted to the hospital due to renal failure and the weight loss. PAST MEDICAL HISTORY: History of borderline diabetes. PAST SURGICAL HISTORY: noncontributory. FAMILY HISTORY: Positive for heart attack in his mother. There is no cancer in family. SOCIAL HISTORY: The patient does not smoke or drink alcohol. MEDICATIONS: See the chart list for details. REVIEW OF SYSTEMS: Otherwise negative. PHYSICAL EXAMINATION: GENERAL: Well-developed, well-nourished man, seen in his room. HEENT: Normocephalic, atraumatic. Sclerae anicteric. Oropharynx clear. NECK: Supple. CHEST: Clear to auscultation. CARDIOVASCULAR: Revealed regular rate. ABDOMEN: Soft with good bowel sounds. There is no organomegaly. EXTREMITIES: Revealed no edema. LABORATORY DATA: Noted. The patient's creatinine on admission was 2.6, which is better today. His hematocrit was 39, which is now lower at 34, is showing some degree of anemia. He also had a chest CT, which did not show any acute findings. ASSESSMENT: This patient presents with complaint of weight loss without any localizing symptomatology. He does have some degree of anemia, which would require workup. He has not had a colonoscopy and therefore colonoscopy with addition of upper endoscopy will be indicated to evaluate his GI tract. In the meantime, a CT scan of the abdomen and pelvis would be reasonable to rule out any occult malignancy. I will check his stool for occult blood as well. Other possibilities for weight loss would include hypothyroidism, but the TSH markers are normal. He does not appear to have any psychiatric causes for anorexia. RECOMMENDATIONS: 1. IV fluids to correct renal failure and to evaluate the current baseline hematocrit. 2. Check stool for occult blood. 3. Endoscopy and colonoscopy once stabilized. 4. CT scan of the abdomen and pelvis. Thank you for asking me to participate in the care of this patient. Celio Pendleton M.D. DR: TI JOB#: [id number] CC: JOHN PAUL
[2019-08-12] VITALS: BP 124/65
--- NOTE | 2019-08-12 02:00 | NUR ---
NURSE NOTES: patient is sleeping comfortably on bed, no sob. bed locked and i lowest position. call light and light button within easy reach. will continue plan of care
[2019-08-12 04:00] VITALS: BP 122/68
[2019-08-12] MEDS: Docusate 100mg cap ORAL SCH ×3 (05:46→17:01)
[2019-08-12] MEDS: D5NS 1,000 ML IV SCH (05:47)
[2019-08-12 06:22] LABS: EOSINOPHILS % (AUTO) 5.1 % (0.0-3.0); HEMATOCRIT 32.3 % (42.0-52.0); HEMOGLOBIN 10.4 G/DL (14.2-18.0); LYMPHOCYTES % (AUTO) 27.8 % (20.0-45.0); MEAN CORPUSCULAR VOLUME 91 FL (80-99); MONOCYTES % (AUTO) 10.1 % (1.0-10.0); PLATELET COUNT 199 K/UL (150-450); RED BLOOD COUNT 3.54 M/UL (4.70-6.10); RED CELL DISTRIBUTION WIDTH 13.2 % (11.6-14.8); WHITE BLOOD COUNT 8.6 K/UL (4.8-10.8)
[2019-08-12 07:11] LABS: % IRON SATURATION 30 % (15-50); IRON 69 ug/dL (50-175); TOTAL IRON BINDING CAPACITY 227 ug/dL (250-450)
[2019-08-12 07:19] LABS: ALANINE AMINOTRANSFERASE 13 U/L (12-78); ALBUMIN 3.3 G/DL (3.4-5.0); ALKALINE PHOSPHATASE 33 U/L (46-116); ANION GAP 10 mmol/L (5-15); ASPARTATE AMINO TRANSFERASE 22 U/L (15-37); BILIRUBIN,TOTAL 0.4 MG/DL (0.2-1.0); BLOOD UREA NITROGEN 19 mg/dL (7-18); CALCIUM 7.8 MG/DL (8.5-10.1); CARBON DIOXIDE 23 MMOL/L (21-32); CHLORIDE 105 MMOL/L (98-107); CREATININE 1.4 MG/DL (0.55-1.30); FERRITIN 323 NG/ML (8-388); PHOSPHORUS 2.8 MG/DL (2.5-4.9); POTASSIUM 3.9 MMOL/L (3.5-5.1); SODIUM 137 MMOL/L (136-145)
--- NOTE | 2019-08-12 07:25 | NUR ---
NURSE NOTES: received report from jonathan Mcghee. patient is alert, awake and oriented x4. sitting on the edge of the bed having breakfast. ambulates. denies any pain or discomfort. IV access on the left hand 20 g with an IVF running D5ns @ 75 ml/hr. verbalized understanding. NO acute cardio-resp distress noted. bed is in the lowest position. brakes and lock @ all times. call light within easy reach. will continue plan of care.
--- NOTE | 2019-08-12 07:31 | NUR ---
HAND-OFF: Report given to zaire faria. patient is awake, no sob. call light and light button within easy reach. plan of care endorsed.
[2019-08-12 08:00] VITALS: BP 126/64
[2019-08-12] MEDS: Heparin 5000 units/ml inj SUBQ SCH ×2 (08:36→20:09)
--- NOTE | 2019-08-12 08:45 | Pulmonology Progress Note ---
Subjective ROS Limited/Unobtainable: No Allergies: Coded Allergies: No Known Allergies (Unverified , 08/10/19) Subjective pulse ox stable on RA no signs of resp distress no fevers, no leukocytosis Objective Last 24 Hour Vital Signs Date Time Temp Pulse Resp B/P (MAP) Pulse Ox O2 Delivery O2 Flow Rate FiO2 08/12/19 04:00 98.5 83 20 122/68 (86) 98 08/12/19 00:00 98.7 81 20 124/65 (84) 97 08/11/19 21:00 Room Air 08/11/19 20:00 98.2 87 20 122/61 (81) 98 08/11/19 16:06 99.0 81 18 121/58 (79) 98 08/11/19 12:00 76 08/11/19 12:00 97.8 59 20 120/59 (79) 97 08/11/19 09:00 Room Air Intake and Output 08/11/19 08/12/19 19:00 07:00 Intake Total 675 ml 1325 ml Balance 675 ml 1325 ml Intake Oral 800 ml IV Total 75 ml 525 ml Other 600 ml # Voids 4 Objective General Appearance: no apparent distress, alert , awake, responsive Lines, tubes and drains: peripheral HEENT: normocephalic, atraumatic, anicteric, mucous membranes moist Neck: non-tender, supple Respiratory/Chest: chest wall non-tender, lungs clear, normal breath sounds, no respiratory distress, no accessory muscle use Cardiovascular/Chest: normal rate, no JVD Abdomen: normal bowel sounds, non tender, soft Extremities: normal range of motion, non-tender Skin Exam: warm/dry Neurologic: no motor/sensory deficits, alert, oriented x 3, responsive Musculoskeletal: normal muscle bulk Laboratory Tests 08/11/19 08:40: Urine Eosinophils None seen, Urine Random Sodium 108 08/12/19 05:45: White Blood Count 8.6, Red Blood Count 3.54L, Hemoglobin 10.4L, Hematocrit 32.3L , Mean Corpuscular Volume 91, Mean Corpuscular Hemoglobin 29.4, Mean Corpuscular Hemoglobin Concent 32.1, Red Cell Distribution Width 13.2, Platelet Count 199, Mean Platelet Volume 6.8, Neutrophils (%) (Auto) 56.0, Lymphocytes (% ) (Auto) 27.8, Monocytes (%) (Auto) 10.1H, Eosinophils (%) (Auto) 5.1H, Basophils (%) (Auto) 1.0, Sodium Level 137, Potassium Level 3.9, Chloride Level 105, Carbon Dioxide Level 23, Anion Gap 10, Blood Urea Nitrogen 19H, Creatinine 1.4H, Estimat Glomerular Filtration Rate 48.4, Glucose Level 88, Uric Acid 5.8, Calcium Level 7.8L, Phosphorus Level 2.8, Magnesium Level 2.1, Iron Level 69, Total Iron Binding Capacity 227L, Percent Iron Saturation 30, Unsaturated Iron Binding 158, Ferritin 323, Total Bilirubin 0.4, Aspartate Amino Transf (AST/SGOT ) 22, Alanine Aminotransferase (ALT/SGPT) 13, Alkaline Phosphatase 33L, Total Protein 6.6, Albumin 3.3L, Globulin 3.3, Albumin/Globulin Ratio 1.0, Vitamin B12 Level 1987H, Folate 29.9 08/12/19 06:16: Urine Eosinophils None seen, Urine Random Sodium 94 Current Medications Medications (Trade) Dose Ordered Sig/Iris Route PRN Reason Start Time Stop Time Status Last Admin Dose Admin Acetaminophen (Tylenol) 650 mg Q4H PRN ORAL fever 08/11/19 15:44 09/10/19 15:43 Albuterol/ Ipratropium (Albuterol/ Ipratropium) 3 ml Q4H PRN HHN Shortness of Breath 08/11/19 15:44 08/16/19 15:43 Dextrose (Dextrose 50%) 25 ml Q30M PRN IV Hypoglycemia 08/11/19 15:44 11/09/19 15:43 Dextrose (Dextrose 50%) 50 ml Q30M PRN IV Hypoglycemia 08/11/19 15:30 11/09/19 15:29 Dextrose/Sodium Chloride 1,000 ml @ 75 mls/hr [id number] IV 08/11/19 16:30 09/09/19 16:29 08/12/19 05:47 Docusate Sodium (Colace) 100 mg TIAC ORAL 08/11/19 16:30 09/09/19 17:59 Heparin Sodium (Porcine) (Heparin 5000 units/ml) 5,000 units EVERY 12 HOURS SUBQ 08/11/19 21:00 09/25/19 08:59 6/21/20 08:36 Ondansetron HCl (Zofran) 4 mg Q6H PRN IVP Nausea & Vomiting 08/11/19 15:44 09/10/19 15:43 Pantoprazole (Protonix) 40 mg BID ORAL 08/11/19 18:00 09/09/19 16:14 08/12/19 08:30 Polyethylene Glycol (Miralax) 17 gm HSPRN PRN ORAL Constipation 08/11/19 15:44 09/10/19 15:43 Tamsulosin HCl (Flomax) 0.4 mg BEDTIME ORAL 08/11/19 21:00 09/09/19 20:59 08/11/19 20:50 Zolpidem Tartrate (Ambien) 5 mg HSPRN PRN ORAL Insomnia 08/11/19 15:44 08/18/19 15:43 Assessment/Plan Assessment/Plan ASSESSMENT RON probably on CKD DM, borderline Hyperkalemia Recent unintentional weight loss , r/o occult malignancy Proteinuria Anemia Protein calorie malnutrition PLAN OF CARE tele IVF O2 PRN titrate to keep sat above 90%, pulm toilet prn DVT prophylaxis Venous duplex-> NGT CT chest-> no acute process MRI abdomen to r/o occult malignancy -> pending renal US ->no hydro, no masses, no stones monitor renal parameters, lytes , correct lytes prn hyperkalemia corrected, K down to normal avoid nephrotoxic f/up with nephro recommendation creat trending down monitor H&H with goal to keep hemoglobin above 7 anemia w/up, stool OB, CEA pending PSA ,TSH, lipid panel all WNL started on Flomax BS management with SSI HgA1c -6.1 diabetic diet diabetic teaching supportive care dietary eval and recs re protein supplements case discussed and evaluated by supervising physician Nelda Duncan NP Aug 12, 2019 08:45
--- NOTE | 2019-08-12 11:32 | Nephrology Progress Note ---
Assessment/Plan Problem List: (1) RON (acute kidney injury) Assessment: Improving (2) Hyperkalemia Assessment: corrected (3) Renal failure (ARF), acute on chronic (4) Proteinuria (5) Anemia (6) DMII (diabetes mellitus, type 2) Assessment Renal failure most likely acute possible underlying chronic kidney disease Hyperkalemia on presentation to the ER Generalized weakness, recent weight loss Anemia DM [place], Proteinuria Plan Discontinue IV fluid, now that the serum creatinine is down to 1.4 Previously: Kayexalate for hyperkalemia as needed Hydrate, will watch for symptoms of CHF Kidney ultrasound results noted Flomax started Keep the blood pressure in check Monitor renal parameters Avoid nephrotoxic's Anemia work-up Urine studies Subjective ROS Limited/Unobtainable: No Objective Objective Last 24 Hour Vital Signs Date Time Temp Pulse Resp B/P (MAP) Pulse Ox O2 Delivery O2 Flow Rate FiO2 08/12/19 09:00 Room Air 08/12/19 08:00 98.1 60 18 126/64 (84) 98 08/12/19 04:00 98.5 83 20 122/68 (86) 98 08/12/19 00:00 98.7 81 20 124/65 (84) 97 08/11/19 21:00 Room Air 08/11/19 20:00 98.2 87 20 122/61 (81) 98 08/11/19 16:06 99.0 81 18 121/58 (79) 98 08/11/19 12:00 76 08/11/19 12:00 97.8 59 20 120/59 (79) 97 Intake and Output 08/11/19 08/12/19 19:00 07:00 Intake Total 675 ml 1400 ml Balance 675 ml 1400 ml Intake Oral 800 ml IV Total 75 ml 600 ml Other 600 ml # Voids 4 Current Medications Medications (Trade) Dose Ordered Sig/Iris Route PRN Reason Start Time Stop Time Status Last Admin Dose Admin Acetaminophen (Tylenol) 650 mg Q4H PRN ORAL fever 08/11/19 15:44 09/10/19 15:43 Albuterol/ Ipratropium (Albuterol/ Ipratropium) 3 ml Q4H PRN HHN Shortness of Breath 08/11/19 15:44 08/16/19 15:43 Dextrose (Dextrose 50%) 25 ml Q30M PRN IV Hypoglycemia 08/11/19 15:44 11/09/19 15:43 Dextrose (Dextrose 50%) 50 ml Q30M PRN IV Hypoglycemia 08/11/19 15:30 11/09/19 15:29 Dextrose/Sodium Chloride 1,000 ml @ 75 mls/hr [id number] IV 08/11/19 16:30 09/09/19 16:29 08/12/19 05:47 Docusate Sodium (Colace) 100 mg TIAC ORAL 08/11/19 16:30 09/09/19 17:59 Heparin Sodium (Porcine) (Heparin 5000 units/ml) 5,000 units EVERY 12 HOURS SUBQ 08/11/19 21:00 09/25/19 08:59 08/12/19 08:36 Ondansetron HCl (Zofran) 4 mg Q6H PRN IVP Nausea & Vomiting 08/11/19 15:44 09/10/19 15:43 Pantoprazole (Protonix) 40 mg BID ORAL 08/11/19 18:00 09/09/19 16:14 08/12/19 08:30 Polyethylene Glycol (Miralax) 17 gm HSPRN PRN ORAL Constipation 08/11/19 15:44 09/10/19 15:43 Tamsulosin HCl (Flomax) 0.4 mg BEDTIME ORAL 08/11/19 21:00 09/09/19 20:59 08/11/19 20:50 Zolpidem Tartrate (Ambien) 5 mg HSPRN PRN ORAL Insomnia 08/11/19 15:44 08/18/19 15:43 Laboratory Tests 08/12/19 05:45: White Blood Count 8.6, Red Blood Count 3.54L, Hemoglobin 10.4L, Hematocrit 32.3L , Mean Corpuscular Volume 91, Mean Corpuscular Hemoglobin 29.4, Mean Corpuscular Hemoglobin Concent 32.1, Red Cell Distribution Width 13.2, Platelet Count 199, Mean Platelet Volume 6.8, Neutrophils (%) (Auto) 56.0, Lymphocytes (% ) (Auto) 27.8, Monocytes (%) (Auto) 10.1H, Eosinophils (%) (Auto) 5.1H, Basophils (%) (Auto) 1.0, Sodium Level 137, Potassium Level 3.9, Chloride Level 105, Carbon Dioxide Level 23, Anion Gap 10, Blood Urea Nitrogen 19H, Creatinine 1.4H, Estimat Glomerular Filtration Rate 48.4, Glucose Level 88, Uric Acid 5.8, Calcium Level 7.8L, Phosphorus Level 2.8, Magnesium Level 2.1, Iron Level 69, Total Iron Binding Capacity 227L, Percent Iron Saturation 30, Unsaturated Iron Binding 158, Ferritin 323, Total Bilirubin 0.4, Aspartate Amino Transf (AST/SGOT ) 22, Alanine Aminotransferase (ALT/SGPT) 13, Alkaline Phosphatase 33L, Total Protein 6.6, Albumin 3.3L, Globulin 3.3, Albumin/Globulin Ratio 1.0, Vitamin B12 Level 1986H, Folate 29.9 08/12/19 06:16: Urine Eosinophils None seen, Urine Random Sodium 94 Height (Feet): 5 Height (Inches): 11.00 Weight (Pounds): 185 General Appearance: no apparent distress Cardiovascular: normal rate Respiratory/Chest: decreased breath sounds Abdomen: soft Objective No change Malcolm Ashton MD Aug 12, 2019 11:32
[2019-08-12 12:05] VITALS: BP 133/87
--- NOTE | 2019-08-12 13:38 | Internal Med Progress Note ---
Subjective Date of Service: Aug 12, 2019 Physician Name Eric Head Attending Physician Terry Morales MD Current Medications Medications (Trade) Dose Ordered Sig/Iris Route PRN Reason Start Time Stop Time Status Last Admin Dose Admin Acetaminophen (Tylenol) 650 mg Q4H PRN ORAL fever 08/11/19 15:44 09/10/19 15:43 Albuterol/ Ipratropium (Albuterol/ Ipratropium) 3 ml Q4H PRN HHN Shortness of Breath 08/11/19 15:44 08/16/19 15:43 Dextrose (Dextrose 50%) 25 ml Q30M PRN IV Hypoglycemia 08/11/19 15:44 11/09/19 15:43 Dextrose (Dextrose 50%) 50 ml Q30M PRN IV Hypoglycemia 08/11/19 15:30 11/09/19 15:29 Docusate Sodium (Colace) 100 mg TIAC ORAL 08/11/19 16:30 09/09/19 17:59 08/12/19 11:37 Heparin Sodium (Porcine) (Heparin 5000 units/ml) 5,000 units EVERY 12 HOURS SUBQ 08/11/19 21:00 09/25/19 08:59 08/12/19 08:36 Ondansetron HCl (Zofran) 4 mg Q6H PRN IVP Nausea & Vomiting 08/11/19 15:44 09/10/19 15:43 Pantoprazole (Protonix) 40 mg BID ORAL 08/11/19 18:00 09/09/19 16:14 08/12/19 08:30 Polyethylene Glycol (Miralax) 17 gm HSPRN PRN ORAL Constipation 08/11/19 15:44 09/10/19 15:43 08/12/19 11:39 Tamsulosin HCl (Flomax) 0.4 mg BEDTIME ORAL 08/11/19 21:00 09/09/19 20:59 08/11/19 20:50 Zolpidem Tartrate (Ambien) 5 mg HSPRN PRN ORAL Insomnia 08/11/19 15:44 08/18/19 15:43 Allergies: Coded Allergies: No Known Allergies (Unverified , 08/10/19) ROS Limited/Unobtainable: No Constitutional: Reports: no symptoms HEENT: Reports: no symptoms Cardiovascular: Reports: no symptoms Respiratory: Reports: no symptoms Gastrointestinal/Abdominal: Reports: no symptoms Genitourinary: Reports: no symptoms Neurologic/Psychiatric: Reports: no symptoms Subjective 84 YO M admitted with weight loss and fatigue. Now acute renal failure. Cover for Int iwona-Dr Morales Objective Last Vital Signs Date Time Temp Pulse Resp B/P (MAP) Pulse Ox O2 Delivery O2 Flow Rate FiO2 08/12/19 12:05 98.8 74 18 133/87 (102) 95 08/12/19 09:00 Room Air Laboratory Tests Test 08/12/19 05:45 08/12/19 06:16 White Blood Count 8.6 K/UL (4.8-10.8) Red Blood Count 3.54 M/UL (4.70-6.10) L Hemoglobin 10.4 G/DL (14.2-18.0) L Hematocrit 32.3 % (42.0-52.0) L Mean Corpuscular Volume 91 FL (80-99) Mean Corpuscular Hemoglobin 29.4 PG (27.0-31.0) Mean Corpuscular Hemoglobin Concent 32.1 G/DL (32.0-36.0) Red Cell Distribution Width 13.2 % (11.6-14.8) Platelet Count 199 K/UL (150-450) Mean Platelet Volume 6.8 FL (6.5-10.1) Neutrophils (%) (Auto) 56.0 % (45.0-75.0) Lymphocytes (%) (Auto) 27.8 % (20.0-45.0) Monocytes (%) (Auto) 10.1 % (1.0-10.0) H Eosinophils (%) (Auto) 5.1 % (0.0-3.0) H Basophils (%) (Auto) 1.0 % (0.0-2.0) Sodium Level 137 MMOL/L (136-145) Potassium Level 3.9 MMOL/L (3.5-5.1) Chloride Level 105 MMOL/L (98-107) Carbon Dioxide Level 23 MMOL/L (21-32) Anion Gap 10 mmol/L (5-15) Blood Urea Nitrogen 19 mg/dL (7-18) H Creatinine 1.4 MG/DL (0.55-1.30) H Estimat Glomerular Filtration Rate 48.4 mL/min (>60) Glucose Level 88 MG/DL (74-106) Uric Acid 5.8 MG/DL (2.6-7.2) Calcium Level 7.8 MG/DL (8.5-10.1) L Phosphorus Level 2.8 MG/DL (2.5-4.9) Magnesium Level 2.1 MG/DL (1.8-2.4) Iron Level 69 ug/dL (50-175) Total Iron Binding Capacity 227 ug/dL (250-450) L Percent Iron Saturation 30 % (15-50) Unsaturated Iron Binding 158 ug/dL (112-346) Ferritin 323 NG/ML (8-388) Total Bilirubin 0.4 MG/DL (0.2-1.0) Aspartate Amino Transf (AST/SGOT) 22 U/L (15-37) Alanine Aminotransferase (ALT/SGPT) 13 U/L (12-78) Alkaline Phosphatase 33 U/L (46-116) L Total Protein 6.6 G/DL (6.4-8.2) Albumin 3.3 G/DL (3.4-5.0) L Globulin 3.3 g/dL Albumin/Globulin Ratio 1.0 (1.0-2.7) Vitamin B12 Level 1987 PG/ML (193-986) H Folate 29.9 NG/ML (8.6-58.9) Urine Eosinophils None seen (NONE SEEN) Urine Random Sodium 94 mmol/L (20-110) Intake and Output 08/11/19 08/12/19 19:00 07:00 Intake Total 675 ml 1400 ml Balance 675 ml 1400 ml Intake Oral 800 ml IV Total 75 ml 600 ml Other 600 ml # Voids 4 Objective PHYSICAL EXAMINATION: GENERAL: The patient awake and responsive, no acute distress. HEAD AND NECK: Pupils are equal and reactive to light. Extraocular movements intact. Neck was supple. No JVD. LUNGS: Good air entry. No wheezes or rales. HEART: S1 and S2. Regular rate and rhythm. No murmur or gallops. ABDOMEN: Soft, nondistended, and nontender. Positive bowel sounds. EXTREMITIES: No cyanosis, clubbing, or edema. NEUROLOGIC: Cranial nerves II through XII grossly intact. Motor is 5/5 in all extremities. Gait is intact. RECTAL/GENITOURINARY: Refused and deferred. PSYCHIATRIC: Mood and affect is intact. Assessment/Plan Assessment/Plan ASSESSMENT: 1. Hyperkalemia. 2. Acute kidney injury on chronic renal insufficiency-resolving. 3. Borderline diabetes type 2. 4. Unexplained weight loss. PLAN: 1. Admit the patient to med/surg 2. Dr. Malcolm Ashton= nephrology consultation 3. Dr. Canales=pulmonary critical care. 4. DVT prophylaxis,=heparin subcutaneous. 5. Code status, Full Code. 6. CT scan of the chest = no acute disease 7. MRI of the abdomen without contrast for unexplained weight loss and possible occult malignancy-pending 8. GI=Dr. Velásquez; await endoscopy and colonoscopy Eric Head MD Aug 12, 2019 13:38
[2019-08-12 15:47] VITALS: BP 118/73
--- NOTE | 2019-08-12 18:56 | NUR ---
HAND-OFF: Report given to
--- NOTE | 2019-08-12 19:15 | NUR ---
NURSE NOTES: received report from giana castillo. patient is sitting on bed, awake and verbally responsive. no sob. on room air. with iv line on the left hand, saline lock. upon doing rounds, per patient" he was able to had a bowel movement". collected stool and sent to the lab ([facility]). patient is aware regarding the mri abdomen. reiterated to call and ask for assistance. call light and light button within easy reach. bed locked and in lowest position. will continue plan of care.
[2019-08-12 20:00] VITALS: BP 138/67
[2019-08-12] MEDS: Tamsulosin 0.4mg cap ORAL SCH (20:08)
--- NOTE | 2019-08-12 21:30 | General Progress Note ---
Assessment/Plan Assessment/Plan: Assessment - Weight loss, ? etiology - Renal failure - Anemia Recommendations - IVF / correction of Azotemia - Monitor labs - Check Iron panel - no deficiency - Check stool OB - pending - Agree with MRI scan - EGD/Colon once stablized Subjective Allergies: Coded Allergies: No Known Allergies (Unverified , 08/10/19) Subjective feels OK tolerating PO no abd pain Objective Last 24 Hour Vital Signs Date Time Temp Pulse Resp B/P (MAP) Pulse Ox O2 Delivery O2 Flow Rate FiO2 08/12/19 21:00 Room Air 08/12/19 20:00 99.0 75 18 138/67 (90) 97 08/12/19 15:47 98.4 73 18 118/73 (88) 99 08/12/19 12:05 98.8 74 18 133/87 (102) 95 08/12/19 09:00 Room Air 08/12/19 08:00 98.1 60 18 126/64 (84) 98 08/12/19 04:00 98.5 83 20 122/68 (86) 98 08/12/19 00:00 98.7 81 20 124/65 (84) 97 Intake and Output 08/11/19 08/12/19 19:00 07:00 Intake Total 675 ml 1400 ml Balance 675 ml 1400 ml Intake Oral 800 ml IV Total 75 ml 600 ml Other 600 ml # Voids 4 Laboratory Tests 08/12/19 05:45: White Blood Count 8.6, Red Blood Count 3.54L, Hemoglobin 10.4L, Hematocrit 32.3L , Mean Corpuscular Volume 91, Mean Corpuscular Hemoglobin 29.4, Mean Corpuscular Hemoglobin Concent 32.1, Red Cell Distribution Width 13.2, Platelet Count 199, Mean Platelet Volume 6.8, Neutrophils (%) (Auto) 56.0, Lymphocytes (% ) (Auto) 27.8, Monocytes (%) (Auto) 10.1H, Eosinophils (%) (Auto) 5.1H, Basophils (%) (Auto) 1.0, Sodium Level 137, Potassium Level 3.9, Chloride Level 105, Carbon Dioxide Level 23, Anion Gap 10, Blood Urea Nitrogen 19H, Creatinine 1.4H, Estimat Glomerular Filtration Rate 48.4, Glucose Level 88, Uric Acid 5.8, Calcium Level 7.8L, Phosphorus Level 2.8, Magnesium Level 2.1, Iron Level 69, Total Iron Binding Capacity 227L, Percent Iron Saturation 30, Unsaturated Iron Binding 158, Ferritin 323, Total Bilirubin 0.4, Aspartate Amino Transf (AST/SGOT ) 22, Alanine Aminotransferase (ALT/SGPT) 13, Alkaline Phosphatase 33L, Total Protein 6.6, Albumin 3.3L, Globulin 3.3, Albumin/Globulin Ratio 1.0, Vitamin B12 Level 1987H, Folate 29.9 08/12/19 06:16: Urine Eosinophils None seen, Urine Random Sodium 94 08/12/19 19:00: Stool Occult Blood [Pending] Height (Feet): 5 Height (Inches): 11.00 Weight (Pounds): 185 Objective WDWN AA Man NCAT supple CTA RRR abd soft ND NT no edema Celio Pendleton MD Aug 12, 2019 21:30
[2019-08-13] VITALS: BP 129/63
[2019-08-13 04:00] VITALS: BP 111/59
[2019-08-13] MEDS: Docusate 100mg cap ORAL SCH ×3 (06:30→17:19)
[2019-08-13 07:12] LABS: BASOPHILS % (AUTO) 1.2 % (0.0-2.0); HEMOGLOBIN 11.3 G/DL (14.2-18.0); LYMPHOCYTES % (AUTO) 33.4 % (20.0-45.0); MEAN CORPUSCULAR VOLUME 91 FL (80-99); MONOCYTES % (AUTO) 10.3 % (1.0-10.0); NEUTROPHILS % (AUTO) 48.1 % (45.0-75.0); PLATELET COUNT 216 K/UL (150-450); RED BLOOD COUNT 3.83 M/UL (4.70-6.10); WHITE BLOOD COUNT 7.9 K/UL (4.8-10.8)
[2019-08-13 07:19] LABS: ANION GAP 11 mmol/L (5-15); BLOOD UREA NITROGEN 17 mg/dL (7-18); CALCIUM 8.4 MG/DL (8.5-10.1); CARBON DIOXIDE 24 MMOL/L (21-32); CHLORIDE 105 MMOL/L (98-107); CREATININE 1.3 MG/DL (0.55-1.30); POTASSIUM 3.9 MMOL/L (3.5-5.1); SODIUM 140 MMOL/L (136-145)
--- NOTE | 2019-08-13 07:33 | NUR ---
HAND-OFF: Report given to jonathan griffin.
[2019-08-13 08:00] VITALS: BP 120/58
--- NOTE | 2019-08-13 08:02 | NUR ---
NURSE NOTES: pt is in his bed asleep and arousable. denies any kind of pain. respiration is even and unlabored. no acute distress noted. call light is place within reach, will continue to follow plan of care.
[2019-08-13] MEDS: Heparin 5000 units/ml inj SUBQ SCH ×2 (08:41→20:13)
--- NOTE | 2019-08-13 09:31 | Nephrology Progress Note ---
Assessment/Plan Problem List: (1) RON (acute kidney injury) Assessment: Improving (2) Hyperkalemia Assessment: corrected (3) Renal failure (ARF), acute on chronic (4) Proteinuria (5) Anemia (6) DMII (diabetes mellitus, type 2) Assessment Renal failure most likely acute possible underlying chronic kidney disease Hyperkalemia on presentation to the ER Generalized weakness, recent weight loss Anemia DM [place], Proteinuria Plan Discontinue IV fluid, now that the serum creatinine is down to 1.3 Continue per consultants, stable for discharge from renal standpoint of view. Previously: Kayexalate for hyperkalemia as needed Hydrate, will watch for symptoms of CHF Kidney ultrasound results noted Flomax started Keep the blood pressure in check Monitor renal parameters Avoid nephrotoxic's Anemia work-up Urine studies Subjective ROS Limited/Unobtainable: No Objective Objective Last 24 Hour Vital Signs Date Time Temp Pulse Resp B/P (MAP) Pulse Ox O2 Delivery O2 Flow Rate FiO2 08/13/19 09:00 Room Air 08/13/19 08:00 97.9 58 18 120/58 (78) 97 08/13/19 04:00 97.9 65 18 111/59 (76) 97 08/13/19 00:00 98.8 83 19 129/63 (85) 96 08/12/19 21:00 Room Air 08/12/19 20:00 99.0 75 18 138/67 (90) 97 08/12/19 15:47 98.4 73 18 118/73 (88) 99 08/12/19 12:05 98.8 74 18 133/87 (102) 95 Intake and Output 08/12/19 08/13/19 19:00 07:00 Intake Total 630 ml 400 ml Balance 630 ml 400 ml Intake Oral 480 ml 400 ml IV Total 150 ml # Voids 2 3 Laboratory Tests 08/12/19 19:00: Stool Occult Blood [Pending] 08/13/19 05:50: White Blood Count 7.9, Red Blood Count 3.83L, Hemoglobin 11.3L, Hematocrit 35.0L , Mean Corpuscular Volume 91, Mean Corpuscular Hemoglobin 29.6, Mean Corpuscular Hemoglobin Concent 32.5, Red Cell Distribution Width 13.0, Platelet Count 216, Mean Platelet Volume 6.7, Neutrophils (%) (Auto) 48.1, Lymphocytes (% ) (Auto) 33.4, Monocytes (%) (Auto) 10.3H, Eosinophils (%) (Auto) 7.0H, Basophils (%) (Auto) 1.2, Sodium Level 140, Potassium Level 3.9, Chloride Level 105, Carbon Dioxide Level 24, Anion Gap 11, Blood Urea Nitrogen 17, Creatinine 1.3, Estimat Glomerular Filtration Rate 52.7, Glucose Level 85, Calcium Level 8.4L, Carcinoembryonic Antigen [Pending] Height (Feet): 5 Height (Inches): 11.00 Weight (Pounds): 185 General Appearance: no apparent distress Cardiovascular: normal rate Respiratory/Chest: decreased breath sounds Abdomen: soft Objective No change Malcolm Ashton MD Aug 13, 2019 09:31
--- NOTE | 2019-08-13 10:45 | NUR ---
RD ASSESSMENT & RECOMMENDATIONS SEE CARE ACTIVITY FOR COMPLETE ASSESSMENT DAILY ESTIMATED NEEDS: Needs based on DM, 84kg 25-30 kcals/kg [id number] total kcals 1-1.5 g protein/kg 84-126 g total protein Fluid per MD NUTRITION DIAGNOSIS: Altered nutrition related lab values r/t clinical status as evidenced by K 5.4 on adm-> wnl, elev cerat 2.6-> 1.3, A1C 6.1. CURRENT DIET: Renal PO DIET RECOMMENDATIONS: LOW NA/ CCHO MED diet ADDITIONAL RECOMMENDATIONS: 1) Obtain daily standing weights 2) Add NEPRO 1 tetra qdaily w/ lunch (425 kcal, 20g pro, low K) 3) Monitor for continued good intake of meals 4) Accuchecks TID AC
--- NOTE | 2019-08-13 11:08 | General Progress Note ---
Assessment/Plan Assessment/Plan: Assessment - Weight loss, ? etiology - Renal failure - Anemia Recommendations - IVF / correction of Azotemia - Monitor labs - Check Iron panel - no deficiency - Check stool OB - pending - FU with MRI scan - EGD/Colon if needed Subjective Allergies: Coded Allergies: No Known Allergies (Unverified , 08/10/19) Objective Last 24 Hour Vital Signs Date Time Temp Pulse Resp B/P (MAP) Pulse Ox O2 Delivery O2 Flow Rate FiO2 08/13/19 09:00 Room Air 08/13/19 08:00 97.9 58 18 120/58 (78) 97 08/13/19 04:00 97.9 65 18 111/59 (76) 97 08/13/19 00:00 98.8 83 19 129/63 (85) 96 08/12/19 21:00 Room Air 08/12/19 20:00 99.0 75 18 138/67 (90) 97 08/12/19 15:47 98.4 73 18 118/73 (88) 99 08/12/19 12:05 98.8 74 18 133/87 (102) 95 Intake and Output 08/12/19 08/13/19 19:00 07:00 Intake Total 630 ml 400 ml Balance 630 ml 400 ml Intake Oral 480 ml 400 ml IV Total 150 ml # Voids 2 3 Laboratory Tests 08/12/19 19:00: Stool Occult Blood [Pending] 08/13/19 05:50: White Blood Count 7.9, Red Blood Count 3.83L, Hemoglobin 11.3L, Hematocrit 35.0L , Mean Corpuscular Volume 91, Mean Corpuscular Hemoglobin 29.6, Mean Corpuscular Hemoglobin Concent 32.5, Red Cell Distribution Width 13.0, Platelet Count 216, Mean Platelet Volume 6.7, Neutrophils (%) (Auto) 48.1, Lymphocytes (% ) (Auto) 33.4, Monocytes (%) (Auto) 10.3H, Eosinophils (%) (Auto) 7.0H, Basophils (%) (Auto) 1.2, Sodium Level 140, Potassium Level 3.9, Chloride Level 105, Carbon Dioxide Level 24, Anion Gap 11, Blood Urea Nitrogen 17, Creatinine 1.3, Estimat Glomerular Filtration Rate 52.7, Glucose Level 85, Calcium Level 8.4L, Carcinoembryonic Antigen [Pending] Height (Feet): 5 Height (Inches): 11.00 Weight (Pounds): 185 General Appearance: no apparent distress EENT: normal ENT inspection Neck: supple Cardiovascular: normal rate Respiratory/Chest: decreased breath sounds Abdomen: hypoactive bowel sounds Extremities: non-tender Alessio Velásquez MD Aug 13, 2019 11:08
[2019-08-13 12:00] VITALS: BP 126/62
--- NOTE | 2019-08-13 12:06 | Pulmonology Progress Note ---
Subjective ROS Limited/Unobtainable: No Interval Events: doing better, NPO for MRI of abdomen Allergies: Coded Allergies: No Known Allergies (Unverified , 08/10/19) Objective Last 24 Hour Vital Signs Date Time Temp Pulse Resp B/P (MAP) Pulse Ox O2 Delivery O2 Flow Rate FiO2 08/13/19 09:00 Room Air 08/13/19 08:00 97.9 58 18 120/58 (78) 97 08/13/19 04:00 97.9 65 18 111/59 (76) 97 08/13/19 00:00 98.8 83 19 129/63 (85) 96 08/12/19 21:00 Room Air 08/12/19 20:00 99.0 75 18 138/67 (90) 97 08/12/19 15:47 98.4 73 18 118/73 (88) 99 08/12/19 12:05 98.8 74 18 133/87 (102) 95 Intake and Output 08/12/19 08/13/19 19:00 07:00 Intake Total 630 ml 400 ml Balance 630 ml 400 ml Intake Oral 480 ml 400 ml IV Total 150 ml # Voids 2 3 General Appearance: WD/WN, no acute distress HEENT: normocephalic Respiratory: chest wall non-tender, lungs clear Cardiovascular: normal peripheral pulses, normal rate Abdomen: normal bowel sounds, no organomegaly Extremities: no cyanosis Skin: no rash, no lesions 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 II-XII grossly normal Laboratory Tests 08/12/19 19:00: Stool Occult Blood Negative 08/13/19 05:50: White Blood Count 7.9, Red Blood Count 3.83L, Hemoglobin 11.3L, Hematocrit 35.0L , Mean Corpuscular Volume 91, Mean Corpuscular Hemoglobin 29.6, Mean Corpuscular Hemoglobin Concent 32.5, Red Cell Distribution Width 13.0, Platelet Count 216, Mean Platelet Volume 6.7, Neutrophils (%) (Auto) 48.1, Lymphocytes (% ) (Auto) 33.4, Monocytes (%) (Auto) 10.3H, Eosinophils (%) (Auto) 7.0H, Basophils (%) (Auto) 1.2, Sodium Level 140, Potassium Level 3.9, Chloride Level 105, Carbon Dioxide Level 24, Anion Gap 11, Blood Urea Nitrogen 17, Creatinine 1.3, Estimat Glomerular Filtration Rate 52.7, Glucose Level 85, Calcium Level 8.4L, Carcinoembryonic Antigen [Pending] Current Medications Medications (Trade) Dose Ordered Sig/Iris Route PRN Reason Start Time Stop Time Status Last Admin Dose Admin Acetaminophen (Tylenol) 650 mg Q4H PRN ORAL fever 08/11/19 15:44 09/10/19 15:43 Albuterol/ Ipratropium (Albuterol/ Ipratropium) 3 ml Q4H PRN HHN Shortness of Breath 08/11/19 15:44 08/16/19 15:43 Dextrose (Dextrose 50%) 25 ml Q30M PRN IV Hypoglycemia 08/11/19 15:44 11/09/19 15:43 Dextrose (Dextrose 50%) 50 ml Q30M PRN IV Hypoglycemia 08/11/19 15:30 11/09/19 15:29 Docusate Sodium (Colace) 100 mg TIAC ORAL 08/11/19 16:30 09/09/19 17:59 08/13/19 11:38 Heparin Sodium (Porcine) (Heparin 5000 units/ml) 5,000 units EVERY 12 HOURS SUBQ 08/11/19 21:00 09/25/19 08:59 08/13/19 08:41 Ondansetron HCl (Zofran) 4 mg Q6H PRN IVP Nausea & Vomiting 08/11/19 15:44 09/10/19 15:43 Pantoprazole (Protonix) 40 mg BID ORAL 08/11/19 18:00 09/09/19 16:14 08/13/19 08:40 Polyethylene Glycol (Miralax) 17 gm HSPRN PRN ORAL Constipation 08/11/19 15:44 09/10/19 15:43 08/12/19 11:39 Tamsulosin HCl (Flomax) 0.4 mg BEDTIME ORAL 08/11/19 21:00 09/09/19 20:59 08/12/19 20:08 Zolpidem Tartrate (Ambien) 5 mg HSPRN PRN ORAL Insomnia 08/11/19 15:44 08/18/19 15:43 Assessment/Plan Problems: (1) RON (acute kidney injury) (2) Episode of generalized weakness (3) Anemia (4) Hyperkalemia (5) DMII (diabetes mellitus, type 2) Assessment/Plan renal function improving check electrolytes continue IV fluids as long as NPO sliding scale scheduled for MRI of abdomen dvt prophylaxis. Ken Canales MD Aug 13, 2019 12:06
--- NOTE | 2019-08-13 12:40 | NUR ---
NURSE NOTES: pt left the unit for MRI of the abdomen; no acute distress noted.
--- NOTE | 2019-08-13 14:21 | Diagnostic Imaging Report ---
EXAM: MRI MRI Abdomen no Contrast TECHNIQUE: MR examination of the abdomen includes coronal T1 and fat-suppressed T2, axial T1 in and out of phase spoiled gradient sequences, and T2 sequences with and without fat suppression. Coronal 3-D MRCP sequence also obtained. CLINICAL HISTORY: Abdominal pain. COMPARISON: None FINDINGS: The liver and spleen appear homogeneous. Gallbladder is without sludge or stone. There is no ductal dilatation. CBD approximately 5 mm. The pancreas is unremarkable. Adrenals are normal. There are bilateral renal cysts. There is no signs of bowel distention. No ascites demonstrated. There is no adenopathy noted. Visualized portions of the lumbar spine appear unremarkable. IMPRESSION: NO SIGN OF ACUTE DISEASE. BILATERAL RENAL CYSTS
--- NOTE | 2019-08-13 14:23 | NUR ---
CASE MANAGEMENT:INITIAL REVIEW 84 YR OLD MALE FROM HOME CC;GENERALIZED WEAKNESS SI;RENAL INSUFFICIENCY. HYPERKALEMIA. 98.2 79 18 105/56 95% ON RA NA 135 K+ 5.4 BUN 45 CR 2.6 UA+ PROTEIN, LEUKOCYTE ESTERASE STOOL OB ~ NEGATIVE RENAL US ~ No hydronephrosis. IS;IVF NS KAYEXALATE PO PROTONIX PO EKG ADMITTED TO MED SURG MED SURG STATUS DCP;PATIENT IS FROM HOME CASE MANAGEMENT:REVIEW SI;ACUTE RENAL FAILURE. UNEXPLAINED WEIGHT LOSS. 98.8 58 19 129/63 96% ON RA IS;HEPARIN SUBQ Q12 FLOMAX PO PROTONIX PO DUO NEB HHN Q4 PRN ZOFRAN IV Q6 PRN MED SURG STATUS DCP;PATIENT IS FROM HOME PLAN;MAINTAIN NPO ABD MRI OUTPATIENT ENDOSCOPY AND COLONOSCOPY
[2019-08-13 16:00] VITALS: BP 130/70
--- NOTE | 2019-08-13 18:14 | Internal Med Progress Note ---
Subjective Date of Service: Aug 13, 2019 Physician Name Eric Head Attending Physician Terry Morales MD Current Medications Medications (Trade) Dose Ordered Sig/Iris Route PRN Reason Start Time Stop Time Status Last Admin Dose Admin Acetaminophen (Tylenol) 650 mg Q4H PRN ORAL fever 08/11/19 15:44 09/10/19 15:43 Albuterol/ Ipratropium (Albuterol/ Ipratropium) 3 ml Q4H PRN HHN Shortness of Breath 08/11/19 15:44 08/16/19 15:43 Dextrose (Dextrose 50%) 25 ml Q30M PRN IV Hypoglycemia 08/11/19 15:44 11/09/19 15:43 Dextrose (Dextrose 50%) 50 ml Q30M PRN IV Hypoglycemia 08/11/19 15:30 11/09/19 15:29 Docusate Sodium (Colace) 100 mg TIAC ORAL 08/11/19 16:30 09/09/19 17:59 08/13/19 17:19 Heparin Sodium (Porcine) (Heparin 5000 units/ml) 5,000 units EVERY 12 HOURS SUBQ 08/11/19 21:00 09/25/19 08:59 08/13/19 08:41 Ondansetron HCl (Zofran) 4 mg Q6H PRN IVP Nausea & Vomiting 08/11/19 15:44 09/10/19 15:43 Pantoprazole (Protonix) 40 mg BID ORAL 08/11/19 18:00 09/09/19 16:14 08/13/19 17:18 Polyethylene Glycol (Miralax) 17 gm HSPRN PRN ORAL Constipation 08/11/19 15:44 09/10/19 15:43 08/12/19 11:39 Tamsulosin HCl (Flomax) 0.4 mg BEDTIME ORAL 08/11/19 21:00 09/09/19 20:59 08/12/19 20:08 Zolpidem Tartrate (Ambien) 5 mg HSPRN PRN ORAL Insomnia 08/11/19 15:44 08/18/19 15:43 Allergies: Coded Allergies: No Known Allergies (Unverified , 08/10/19) ROS Limited/Unobtainable: No Constitutional: Reports: no symptoms HEENT: Reports: no symptoms Cardiovascular: Reports: no symptoms Respiratory: Reports: no symptoms Gastrointestinal/Abdominal: Reports: no symptoms Genitourinary: Reports: no symptoms Neurologic/Psychiatric: Reports: no symptoms Subjective 84 YO M admitted with weight loss and fatigue. Now acute renal failure. Cover for Int iwona-Dr Morales Objective Last Vital Signs Date Time Temp Pulse Resp B/P (MAP) Pulse Ox O2 Delivery O2 Flow Rate FiO2 08/13/19 16:00 98.0 64 18 130/70 (90) 93 08/13/19 09:00 Room Air Laboratory Tests Test 08/12/19 19:00 08/13/19 05:50 Stool Occult Blood Negative (NEGATIVE) White Blood Count 7.9 K/UL (4.8-10.8) Red Blood Count 3.83 M/UL (4.70-6.10) L Hemoglobin 11.3 G/DL (14.2-18.0) L Hematocrit 35.0 % (42.0-52.0) L Mean Corpuscular Volume 91 FL (80-99) Mean Corpuscular Hemoglobin 29.6 PG (27.0-31.0) Mean Corpuscular Hemoglobin Concent 32.5 G/DL (32.0-36.0) Red Cell Distribution Width 13.0 % (11.6-14.8) Platelet Count 216 K/UL (150-450) Mean Platelet Volume 6.7 FL (6.5-10.1) Neutrophils (%) (Auto) 48.1 % (45.0-75.0) Lymphocytes (%) (Auto) 33.4 % (20.0-45.0) Monocytes (%) (Auto) 10.3 % (1.0-10.0) H Eosinophils (%) (Auto) 7.0 % (0.0-3.0) H Basophils (%) (Auto) 1.2 % (0.0-2.0) Sodium Level 140 MMOL/L (136-145) Potassium Level 3.9 MMOL/L (3.5-5.1) Chloride Level 105 MMOL/L (98-107) Carbon Dioxide Level 24 MMOL/L (21-32) Anion Gap 11 mmol/L (5-15) Blood Urea Nitrogen 17 mg/dL (7-18) Creatinine 1.3 MG/DL (0.55-1.30) Estimat Glomerular Filtration Rate 52.7 mL/min (>60) Glucose Level 85 MG/DL (74-106) Calcium Level 8.4 MG/DL (8.5-10.1) L Carcinoembryonic Antigen Pending Intake and Output 08/12/19 08/13/19 19:00 07:00 Intake Total 630 ml 400 ml Balance 630 ml 400 ml Intake Oral 480 ml 400 ml IV Total 150 ml # Voids 2 3 Objective PHYSICAL EXAMINATION: GENERAL: The patient awake and responsive, no acute distress. HEAD AND NECK: Pupils are equal and reactive to light. Extraocular movements intact. Neck was supple. No JVD. LUNGS: Good air entry. No wheezes or rales. HEART: S1 and S2. Regular rate and rhythm. No murmur or gallops. ABDOMEN: Soft, nondistended, and nontender. Positive bowel sounds. EXTREMITIES: No cyanosis, clubbing, or edema. NEUROLOGIC: Cranial nerves II through XII grossly intact. Motor is 5/5 in all extremities. Gait is intact. RECTAL/GENITOURINARY: Refused and deferred. PSYCHIATRIC: Mood and affect is intact. Assessment/Plan Assessment/Plan ASSESSMENT: 1. Hyperkalemia. 2. Acute kidney injury on chronic renal insufficiency-resolving. 3. Borderline diabetes type 2. 4. Unexplained weight loss. PLAN: 1. Admit the patient to med/surg 2. Dr. Malcolm Ashton= nephrology consultation 3. Dr. Canales=pulmonary critical care. 4. DVT prophylaxis,=heparin subcutaneous. 5. Code status, Full Code. 6. CT scan of the chest = no acute disease 7. MRI of the abdomen without contrast for unexplained weight loss and possible occult malignancy-pending result 8. GI=Dr. Velásquez; patient refused endoscopy and colonoscopy Eric Head MD Aug 13, 2019 18:14
--- NOTE | 2019-08-13 19:10 | NUR ---
HAND-OFF: Report given to HERVE.
[2019-08-13 20:00] VITALS: BP 117/60
--- NOTE | 2019-08-13 20:00 | NUR ---
NURSE NOTES: Received patient awake in bed, sitting up, no s/s of acute distress, no c/o pain at this time. Bed low and locked, patient wearing non slip socks, ambulatory with steady gait.
[2019-08-13] MEDS: Tamsulosin 0.4mg cap ORAL SCH (20:13)
[2019-08-14] VITALS: BP 125/58
[2019-08-14 04:00] VITALS: BP 121/55
[2019-08-14] MEDS: Docusate 100mg cap ORAL SCH ×2 (06:15→12:00)
[2019-08-14 06:44] LABS: BASOPHILS % (AUTO) 1.3 % (0.0-2.0); EOSINOPHILS % (AUTO) 5.6 % (0.0-3.0); HEMATOCRIT 34.3 % (42.0-52.0); HEMOGLOBIN 11.3 G/DL (14.2-18.0); LYMPHOCYTES % (AUTO) 31.8 % (20.0-45.0); MEAN CORPUSCULAR VOLUME 91 FL (80-99); MONOCYTES % (AUTO) 11.1 % (1.0-10.0); NEUTROPHILS % (AUTO) 50.2 % (45.0-75.0); PLATELET COUNT 209 K/UL (150-450); RED BLOOD COUNT 3.79 M/UL (4.70-6.10); RED CELL DISTRIBUTION WIDTH 12.8 % (11.6-14.8); WHITE BLOOD COUNT 7.4 K/UL (4.8-10.8)
[2019-08-14 06:47] LABS: ANION GAP 9 mmol/L (5-15); BLOOD UREA NITROGEN 19 mg/dL (7-18); CALCIUM 8.3 MG/DL (8.5-10.1); CARBON DIOXIDE 25 MMOL/L (21-32); CHLORIDE 105 MMOL/L (98-107); CREATININE 1.3 MG/DL (0.55-1.30); POTASSIUM 3.7 MMOL/L (3.5-5.1); SODIUM 139 MMOL/L (136-145)
--- NOTE | 2019-08-14 07:19 | NUR ---
HAND-OFF: Report given to MEAGAN Drummond.
--- NOTE | 2019-08-14 07:23 | NUR ---
NURSE NOTES: Patient awake, alert x4; sitting on bed and eating breakfast; on room air, no sing of shortness of breath and distress; no sing of chest pain; IV Left-Hand flushes well; side rails up x2, breaks engaged, bed at lowest position; call light within reach; will keep monitoring.
[2019-08-14 08:00] VITALS: BP 137/63
[2019-08-14] MEDS: Heparin 5000 units/ml inj SUBQ SCH (08:16)
--- NOTE | 2019-08-14 08:41 | NUR ---
NURSE NOTES: Patient's skin assessed; skin intact; no sing of pressure ulcer on sacral; no sing of DTI; will keep monitoring.
--- NOTE | 2019-08-14 09:36 | General Progress Note ---
Assessment/Plan Assessment/Plan: Assessment - Weight loss, ? etiology - Renal failure - Anemia Recommendations - Monitor labs - Check Iron panel - no deficiency - Check stool OB - negative - MRI reviewed -fu CEA - EGD/Colon as out patient Subjective Allergies: Coded Allergies: No Known Allergies (Unverified , 08/10/19) Objective Last 24 Hour Vital Signs Date Time Temp Pulse Resp B/P (MAP) Pulse Ox O2 Delivery O2 Flow Rate FiO2 08/14/19 09:00 Room Air 08/14/19 08:00 97.7 85 18 137/63 (87) 95 08/14/19 04:00 98.2 69 18 121/55 (77) 94 08/14/19 00:00 98.1 64 18 125/58 (80) 94 08/13/19 20:56 Room Air 08/13/19 20:00 98.2 77 18 117/60 (79) 93 08/13/19 16:00 98.0 64 18 130/70 (90) 93 08/13/19 12:00 97.7 69 18 126/62 (83) 98 Intake and Output 08/13/19 08/14/19 19:00 07:00 Intake Total 260 ml 480 ml Balance 260 ml 480 ml Intake Oral 260 ml 480 ml # Voids 3 3 Laboratory Tests 08/14/19 06:10: White Blood Count 7.4, Red Blood Count 3.79L, Hemoglobin 11.3L, Hematocrit 34.3L , Mean Corpuscular Volume 91, Mean Corpuscular Hemoglobin 29.7, Mean Corpuscular Hemoglobin Concent 32.8, Red Cell Distribution Width 12.8, Platelet Count 209, Mean Platelet Volume 7.6, Neutrophils (%) (Auto) 50.2, Lymphocytes (% ) (Auto) 31.8, Monocytes (%) (Auto) 11.1H, Eosinophils (%) (Auto) 5.6H, Basophils (%) (Auto) 1.3, Sodium Level 139, Potassium Level 3.7, Chloride Level 105, Carbon Dioxide Level 25, Anion Gap 9, Blood Urea Nitrogen 19H, Creatinine 1.3, Estimat Glomerular Filtration Rate 52.7, Glucose Level 82, Calcium Level 8.3L Height (Feet): 5 Height (Inches): 11.00 Weight (Pounds): 185 General Appearance: no apparent distress EENT: normal ENT inspection Neck: supple Cardiovascular: normal rate Respiratory/Chest: decreased breath sounds Abdomen: normal bowel sounds, non tender, soft Extremities: non-tender Alessio Velásquez MD Aug 14, 2019 09:35
--- NOTE | 2019-08-14 09:47 | Nephrology Progress Note ---
Assessment/Plan Problem List: (1) RON (acute kidney injury) Assessment: Improving (2) Hyperkalemia Assessment: corrected (3) Renal failure (ARF), acute on chronic (4) Proteinuria (5) Anemia (6) DMII (diabetes mellitus, type 2) Assessment Renal failure most likely acute possible underlying chronic kidney disease Hyperkalemia on presentation to the ER Generalized weakness, recent weight loss Anemia DM [place], Proteinuria Plan Discontinue IV fluid, now that the serum creatinine is down to 1.3 Continue per consultants, stable for discharge from renal standpoint of view. Previously: Kayexalate for hyperkalemia as needed Hydrate, will watch for symptoms of CHF Kidney ultrasound results noted Flomax started Keep the blood pressure in check Monitor renal parameters Avoid nephrotoxic's Anemia work-up Urine studies Subjective ROS Limited/Unobtainable: No Constitutional: Reports: malaise Objective Objective Last 24 Hour Vital Signs Date Time Temp Pulse Resp B/P (MAP) Pulse Ox O2 Delivery O2 Flow Rate FiO2 08/14/19 09:00 Room Air 08/14/19 08:00 97.7 85 18 137/63 (87) 95 08/14/19 04:00 98.2 69 18 121/55 (77) 94 08/14/19 00:00 98.1 64 18 125/58 (80) 94 08/13/19 20:56 Room Air 08/13/19 20:00 98.2 77 18 117/60 (79) 93 08/13/19 16:00 98.0 64 18 130/70 (90) 93 08/13/19 12:00 97.7 69 18 126/62 (83) 98 Intake and Output 08/13/19 08/14/19 19:00 07:00 Intake Total 260 ml 480 ml Balance 260 ml 480 ml Intake Oral 260 ml 480 ml # Voids 3 3 Current Medications Medications (Trade) Dose Ordered Sig/Iris Route PRN Reason Start Time Stop Time Status Last Admin Dose Admin Acetaminophen (Tylenol) 650 mg Q4H PRN ORAL fever 08/11/19 15:44 09/10/19 15:43 Albuterol/ Ipratropium (Albuterol/ Ipratropium) 3 ml Q4H PRN HHN Shortness of Breath 08/11/19 15:44 08/16/19 15:43 Dextrose (Dextrose 50%) 25 ml Q30M PRN IV Hypoglycemia 08/11/19 15:44 11/09/19 15:43 Dextrose (Dextrose 50%) 50 ml Q30M PRN IV Hypoglycemia 08/11/19 15:30 11/09/19 15:29 Docusate Sodium (Colace) 100 mg TIAC ORAL 08/11/19 16:30 09/09/19 17:59 08/14/19 06:15 Heparin Sodium (Porcine) (Heparin 5000 units/ml) 5,000 units EVERY 12 HOURS SUBQ 08/11/19 21:00 09/25/19 08:59 08/14/19 08:16 Ondansetron HCl (Zofran) 4 mg Q6H PRN IVP Nausea & Vomiting 08/11/19 15:44 09/10/19 15:43 Pantoprazole (Protonix) 40 mg BID ORAL 08/11/19 18:00 09/09/19 16:14 08/14/19 08:15 Polyethylene Glycol (Miralax) 17 gm HSPRN PRN ORAL Constipation 08/11/19 15:44 09/10/19 15:43 08/12/19 11:39 Tamsulosin HCl (Flomax) 0.4 mg BEDTIME ORAL 08/11/19 21:00 09/09/19 20:59 08/13/19 20:13 Zolpidem Tartrate (Ambien) 5 mg HSPRN PRN ORAL Insomnia 08/11/19 15:44 08/18/19 15:43 Laboratory Tests 08/14/19 06:10: White Blood Count 7.4, Red Blood Count 3.79L, Hemoglobin 11.3L, Hematocrit 34.3L , Mean Corpuscular Volume 91, Mean Corpuscular Hemoglobin 29.7, Mean Corpuscular Hemoglobin Concent 32.8, Red Cell Distribution Width 12.8, Platelet Count 209, Mean Platelet Volume 7.6, Neutrophils (%) (Auto) 50.2, Lymphocytes (% ) (Auto) 31.8, Monocytes (%) (Auto) 11.1H, Eosinophils (%) (Auto) 5.6H, Basophils (%) (Auto) 1.3, Sodium Level 139, Potassium Level 3.7, Chloride Level 105, Carbon Dioxide Level 25, Anion Gap 9, Blood Urea Nitrogen 19H, Creatinine 1.3, Estimat Glomerular Filtration Rate 52.7, Glucose Level 82, Calcium Level 8.3L Height (Feet): 5 Height (Inches): 11.00 Weight (Pounds): 185 General Appearance: no apparent distress Objective No change Malcolm Ashton MD Aug 14, 2019 09:47
--- NOTE | 2019-08-14 11:51 | NUR ---
DISCHARGE PLANNING DR LOONEY GAVE TO/RB TO DC PATIENT HOME WITH HOME MEDS. NOTED AND CARRIED OUT. CHARGE NURSE DARNELL INFORMED
[2019-08-14 12:00] VITALS: BP 130/55
--- NOTE | 2019-08-14 13:05 | Pulmonology Progress Note ---
Subjective ROS Limited/Unobtainable: No Interval Events: doing better, NPO for MRI of abdomen Allergies: Coded Allergies: No Known Allergies (Unverified , 08/10/19) Objective Last 24 Hour Vital Signs Date Time Temp Pulse Resp B/P (MAP) Pulse Ox O2 Delivery O2 Flow Rate FiO2 08/14/19 12:00 97.4 76 18 130/55 (80) 95 08/14/19 09:00 Room Air 08/14/19 08:00 97.7 85 18 137/63 (87) 95 08/14/19 04:00 98.2 69 18 121/55 (77) 94 08/14/19 00:00 98.1 64 18 125/58 (80) 94 08/13/19 20:56 Room Air 08/13/19 20:00 98.2 77 18 117/60 (79) 93 08/13/19 16:00 98.0 64 18 130/70 (90) 93 Intake and Output 08/13/19 08/14/19 19:00 07:00 Intake Total 260 ml 480 ml Balance 260 ml 480 ml Intake Oral 260 ml 480 ml # Voids 3 3 General Appearance: WD/WN, no acute distress HEENT: normocephalic Respiratory: chest wall non-tender, lungs clear Cardiovascular: normal peripheral pulses, normal rate Abdomen: normal bowel sounds, no organomegaly Extremities: no cyanosis Skin: no rash, no lesions Neurologic: 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3, Estimat Glomerular Filtration Rate 52.7, Glucose Level 82, Calcium Level 8.3L Current Medications Medications (Trade) Dose Ordered Sig/Iris Route PRN Reason Start Time Stop Time Status Last Admin Dose Admin Acetaminophen (Tylenol) 650 mg Q4H PRN ORAL fever 08/11/19 15:44 09/10/19 15:43 Albuterol/ Ipratropium (Albuterol/ Ipratropium) 3 ml Q4H PRN HHN Shortness of Breath 08/11/19 15:44 08/16/19 15:43 Dextrose (Dextrose 50%) 25 ml Q30M PRN IV Hypoglycemia 08/11/19 15:44 11/09/19 15:43 Dextrose (Dextrose 50%) 50 ml Q30M PRN IV Hypoglycemia 08/11/19 15:30 11/09/19 15:29 Docusate Sodium (Colace) 100 mg TIAC ORAL 08/11/19 16:30 09/09/19 17:59 08/14/19 12:00 Heparin Sodium (Porcine) (Heparin 5000 units/ml) 5,000 units EVERY 12 HOURS SUBQ 08/11/19 21:00 09/25/19 08:59 08/14/19 08:16 Ondansetron HCl (Zofran) 4 mg Q6H PRN IVP Nausea & Vomiting 08/11/19 15:44 09/10/19 15:43 Pantoprazole (Protonix) 40 mg BID ORAL 08/11/19 18:00 09/09/19 16:14 08/14/19 08:15 Polyethylene Glycol (Miralax) 17 gm HSPRN PRN ORAL Constipation 08/11/19 15:44 09/10/19 15:43 08/12/19 11:39 Tamsulosin HCl (Flomax) 0.4 mg BEDTIME ORAL 08/11/19 21:00 09/09/19 20:59 08/13/19 20:13 Zolpidem Tartrate (Ambien) 5 mg HSPRN PRN ORAL Insomnia 08/11/19 15:44 08/18/19 15:43 Assessment/Plan Problems: (1) RON (acute kidney injury) (2) Episode of generalized weakness (3) Anemia (4) Hyperkalemia (5) DMII (diabetes mellitus, type 2) Assessment/Plan no new complains renal function improving check electrolytes continue IV fluids as long as NPO sliding scale MRI of abdomen didn't show any acute pathology dvt prophylaxis. Ken Canales MD Aug 14, 2019 13:05
[2019-08-14] MEDS ORDERED: COLACE100 MG ORAL (13:06)
[2019-08-14] MEDS ORDERED: FLOMAX0.4 MG ORAL (13:06)
--- NOTE | 2019-08-14 14:46 | NUR ---
NURSE NOTES: Patient discharge to home; patient's belonging signed by patient and discharging primary nurse; two medication prescription given to patient and copy in file; printed teaching material, diagnosis and when to seek for help given to patient; patient was stable upon discharge; patient left the floor ambulating;
--- NOTE | 2019-08-14 15:10 | Discharge Summary ---
Discharge Summary Discharge Summary _ DATE OF ADMISSION: 08/10/2019 DATE OF DISCHARGE: 08/14/2019 DISCHARGED BY: Dr. Morales REASON FOR ADMISSION: 84 years old male with PMH of borderline diabetes mellitus, recent weight loss , was referred to ED by his primary MD due to abnormal labs , which showed abnormal kidney function. Upon evaluation vital signs were stable. Patient denied chest pain or shortness of breath. Patient denied fever or chills. He reported weight loss of >20 Lb in the last 1-1.5 month Laboratory work-up revealed no leukocytosis ,hemoglobin 12.7, hematocrit 39.2, platelet count 252. Potassium 5.4. BUN 45, creatinine 2.6. Glucose 115. Stable LFT. Troponin negative. EKG revealed sinus rhythm , no acute ischemic changes. Albumin 4.1. Urinalysis revealed +1 protein. Patient admitted for renal failure ,hyperkalemia and recent weight loss ,rule out occult malignancy CONSULTANTS: pulmonary /critical care Dr. Canales GI specialist Dr. Velásquez branch operations specialist Dr. Álvarez [facility] COURSE: Patient initially admitted to telemetry floor and started on IV fluids. CT scan of the chest revealed no acute findings. MRI of the abdomen revealed no signs of acute disease. Bilateral renal cyst noted. No evidence of occult malignancy on these imaging. Venous duplex bilateral lower extremity revealed no evidence of acute DVT. DVT prophylaxis provided. Supplemental oxygen was on board as needed to keep pulse oximetry above 92%. Pulse oximetry remained stable on room air. Echocardiogram demonstrated preserved ejection fraction of 65 to 70%. No evidence of wall motion abnormality. Renal parameters and electrolytes were closely monitored, electrolytes further corrected as needed. Hyperkalemia corrected. Potassium down to normal. Nephrotoxic's were avoided. Renal ultrasound revealed no hydronephrosis , no masses , no stones. Creatinine trended down : from initial 2.6 down to normal 1.3. Per branch operations specialist , patient had acute on chronic renal failure, which resolved with IV hydration. Hemoglobin and hematocrit were closely monitored with goal to keep hemoglobin above 7. Stool for occult blood was negative. PSA , TSH both within normal limits. Anemia work-up revealed stable iron. Hemoglobin and hematocrit remained at baseline ; prior to discharge hemoglobin 11.3, hematocrit 34.3. Patient declined EGD and colonoscopy while in the hospital. Blood sugar was closely monitored and managed with sliding scale of insulin as needed. Hemoglobin A1c 6.1. No concentrated sweet diet provided. Diabetic teaching provided. Supportive care provided. Protein supplements provided as per registered dietitian recommendation. Weight loss was still of unclear etiology. Renal failure resolved. Hemoglobin and hematocrit remained at baseline. Patient advised to have outpatient EGD and colonoscopy for further workup of unexplained weight loss. Patient clinically stabilized and was ready for discharge home. FINAL DIAGNOSES: Acute kidney injury probably on chronic kidney disease Borderline diabetes mellitus Hyperkalemia Recent weight loss, unexplained, rule out occult malignancy Proteinuria Anemia DISCHARGE MEDICATIONS: See Medication Reconciliation list. DISCHARGE INSTRUCTIONS: Patient was discharged home. Follow-up with a primary care provider in 1 week. Patient was advised to have outpatient EGD and colonoscopy. Nelda Duncan NP Aug 14, 2019 15:10
== END 2019-08-14 14:35 | disposition home or self-care (01) | DRG 684 ==
LOC: EMR 13:00 → OBSVTOIN 14:40 → 2E 14:40 → EDBEDREQ 15:16 → 4E 08-11 16:25
DX: N17.9 Acute kidney failure, unspecified (principal); E87.5 Hyperkalemia; D63.8 Anemia in other chronic diseases classified elsewhere; N18.9 Chronic kidney disease, unspecified; R73.03 Prediabetes
CPT/HCPCS: 36415; 71250; 74181; 76770; 80048; 80053; 80061; 81003; 82270; 82378; 82607; 82728; 82746; 82977; 83036; 83540; 83550; 83735; 83880; 84100; 84153; 84300; 84443; 84484; 84550; 85025; 86140; 89050; 93005; 93306; 93970; 96360; 96361; 96365; 96366; 97802; 99285; J7030